=== PATIENT | female | born 1980 | race Caucasian/White ===

== ENCOUNTER 2016-11-22 00:26 | Emergency (ER) | payer OTHER ==
[2016-11-22 00:36] VITALS: BP 171/83; PULSE 72; RESP 20; TEMP 98.2
[2016-11-22] MEDS ORDERED: PENICILLIN V POTASSIUM 250 MG TAB PO STA (00:42)
[2016-11-22] MEDS ORDERED: Acetaminophen-Codeine 300-30mg TAB PO STA (00:42)
--- NOTE | 2016-11-22 00:44 | ED ---
ENT HPI - General Chief complaint: Dental/Oral Stated complaint: facial/tooth pain Time Seen by Provider: 11/22/16 00:37 Source: patient, RN notes reviewed Mode of arrival: ambulatory Limitations: no limitations - History of Present Illness Initial comments: 36-year-old female presented emergency from for left side of facial pain, swelling. Patient states she feels that she has a dental infection. She states her last night and has been worsening. She states that she thought she could wait until Wednesday to see a dentist but states that she was worried that worse. Patient any fevers or chills. Denies any difficulty swallowing, to the opening her mouth. Patient states that she does have some bad teeth that she knows about in the upper aspect. Patient has NO KNOWN DRUG ALLERGIES. - Related Data Previous Rx's Medication Instructions Recorded Acetaminophen-Codeine 300-30mg 1 tab PO Q4H PRN #20 tablet 11/22/16 [Tylenol #3] Penicillin V Potassium [Pen Vee K] 500 mg PO QID #40 tab 11/22/16 Allergies Allergy/AdvReac Type Severity Reaction Status Date / Time No Known Allergies Allergy Verified 11/22/16 00:36 Review of Systems ROS Statement: Those systems with pertinent positive or pertinent negative responses have been documented in the HPI. ROS Other: All systems not noted in ROS Statement are negative. Past Medical History Past Medical History: No Reported History History of Any Multi-Drug Resistant Organisms: None Reported Past Surgical History: Section, Cholecystectomy, Tubal Ligation Past Psychological History: No Psychological Hx Reported Smoking Status: Current every day smoker Past Alcohol Use History: Occasional Past Drug Use History: None Reported General Exam Limitations: no limitations General appearance: alert, in no apparent distress Head exam: Present: atraumatic, normocephalic, normal inspection Eye exam: Present: normal appearance, PERRL, EOMI. Absent: scleral icterus, conjunctival injection, periorbital swelling ENT exam: Present: mucous membranes moist, other (Mild swelling to the left cheek). Absent: normal oropharynx (Multiple dental fillings noted, no drainable abscess there is some tenderness along the upper left teeth) Neck exam: Present: normal inspection, full ROM. Absent: tenderness, meningismus, lymphadenopathy Respiratory exam: Present: normal lung sounds bilaterally. Absent: respiratory distress, wheezes, rales, rhonchi, stridor Cardiovascular Exam: Present: regular rate, normal rhythm, normal heart sounds. Absent: systolic murmur, diastolic murmur, rubs, gallop, clicks Course Vital Signs 11/22/16 00:34 Temperature 98.2 F Pulse Rate 72 Respiratory 20 Rate Blood Pressure 171/83 O2 Sat by Pulse 97 Oximetry Medical Decision Making - Medical Decision Making 36-year-old female presented for left-sided facial pain and swelling. Patient most likely has an early dental abscess. Patient was started on penicillin and given Tylenol with codeine for pain. Return parameters were discussed. She is advised to dentist on Wednesday. Disposition Clinical Impression: Toothache, Dental abscess Disposition: HOME SELF-CARE Condition: Stable Instructions: Dental Abscess (ED) Additional Instructions: Please return to the Emergency Department if symptoms worsen or any other concerns. Prescriptions: Acetaminophen-Codeine 300-30mg [Tylenol #3] 1 tab PO Q4H PRN #20 tablet PRN Reason: pain Penicillin V Potassium [Pen Vee K] 500 mg PO QID #40 tab Referrals: Sherine Ma MD [Primary Care Provider] - 1-2 days Time of Disposition: 00:43
== END 2016-11-22 01:05 | disposition home or self-care (01) ==
LOC: EC 00:26
DX: K04.7 Periapical abscess without sinus (principal); F17.200 Nicotine dependence, unspecified, uncomplicated; Z98.811 Dental restoration status
CPT/HCPCS: 99282

== ENCOUNTER 2017-06-16 09:24 | Emergency (ER) | payer OTHER ==
[2017-06-16] MEDS ORDERED: SODIUM CHLORIDE 0.9% 1,000 ML IV STA (09:44)
[2017-06-16] MEDS ORDERED: METOCLOPRAMIDE 5 MG/ML 2 ML VIAL IVP STA (09:44)
--- NOTE | 2017-06-16 10:39 | ED ---
Abdominal Pain HPI - General Chief Complaint: Abdominal Pain Stated Complaint: Abdominal pain Time Seen by Provider: 06/16/17 09:44 Source: patient, RN notes reviewed Mode of arrival: ambulatory Limitations: no limitations - History of Present Illness Initial Comments: This a 36-year-old female presents emergency Department chief complaint abdominal pain for last several months. Patient states his been worsening. She does complain of intermittent constipation and diarrhea. She states she's had no melena or hematochezia. Patient states that a prior cholecystomy, tubal ligation. Patient denies any known fever no chills. She states the pain is not localize states it's more diffuse and varies. Patient has no change in back pain she does have some chronic back pain issues. Denies any chest pain or shortness breath. She does admit to some acid reflux at times. Chance patient states that the patient denies any vaginal bleeding or vaginal discharge. MD Complaint: abdominal pain - Related Data Home Medications Medication Instructions Recorded Confirmed diphenhydrAMINE [Benadryl] 50 mg PO HS PRN 06/16/17 06/16/17 Previous Rx's Medication Instructions Recorded Acetaminophen-Codeine 300-30mg 1 tab PO Q4H PRN #20 tablet 11/22/16 [Tylenol #3] Allergies Allergy/AdvReac Type Severity Reaction Status Date / Time No Known Allergies Allergy Verified 06/16/17 10:29 Review of Systems ROS Statement: Those systems with pertinent positive or pertinent negative responses have been documented in the HPI. ROS Other: All systems not noted in ROS Statement are negative. Past Medical History Past Medical History: No Reported History History of Any Multi-Drug Resistant Organisms: None Reported Past Surgical History: Section, Cholecystectomy, Tubal Ligation Past Psychological History: No Psychological Hx Reported Smoking Status: Current every day smoker Past Alcohol Use History: Occasional Past Drug Use History: None Reported General Exam Limitations: no limitations General appearance: alert, in no apparent distress Head exam: Present: atraumatic, normocephalic, normal inspection Neck exam: Present: normal inspection, full ROM. Absent: tenderness, meningismus, lymphadenopathy Respiratory exam: Present: normal lung sounds bilaterally. Absent: respiratory distress, wheezes, rales, rhonchi, stridor Cardiovascular Exam: Present: regular rate, normal rhythm, normal heart sounds. Absent: systolic murmur, diastolic murmur, rubs, gallop, clicks GI/Abdominal exam: Present: soft, tenderness (Mild diffuse), normal bowel sounds. Absent: distended, guarding, rebound, rigid Back exam: Absent: CVA tenderness (R), CVA tenderness (L) Skin exam: Present: warm, dry, intact, normal color. Absent: rash Course Vital Signs 06/16/17 09:39 Temperature 98.9 F Pulse Rate 79 Respiratory 18 Rate Blood Pressure 179/89 O2 Sat by Pulse 98 Oximetry Medical Decision Making - Medical Decision Making 36 year old Female presented for abdominal pain. Patient's been having ongoing issues worsened last few days. Patient lab work, x-ray and CT were reviewed. Patient does have some evidence of enteritis or ileus. Patient states she does feel improved after medicines here. Patient will be discharged advised to follow-up with primary care physician. We discussed she may have some underlying the IBS because her ongoing intestinal issues. - Lab Data Result diagrams: 06/16/17 10:32 06/16/17 10:32 Lab Results 06/16/17 06/16/17 06/16/17 Range/Units 10:32 10:32 10:32 WBC 6.9 (3.8-10.6) k/uL RBC 4.86 (3.80-5.40) m/uL Hgb 14.0 (11.4-16.0) gm/dL Hct 41.8 (34.0-46.0) % MCV 86.1 (80.0-100.0) fL MCH 28.8 (25.0-35.0) pg MCHC 33.5 (31.0-37.0) g/dL RDW 13.7 (11.5-15.5) % Plt Count 337 (150-450) k/uL Neutrophils % 66 % Lymphocytes % 24 % Monocytes % 4 % Eosinophils % 3 % Basophils % 1 % Neutrophils # 4.6 (1.3-7.7) k/uL Lymphocytes # 1.7 (1.0-4.8) k/uL Monocytes # 0.3 (0-1.0) k/uL Eosinophils # 0.2 (0-0.7) k/uL Basophils # 0.0 (0-0.2) k/uL Sodium 142 (137-145) mmol/L Potassium 4.7 (3.5-5.1) mmol/L Chloride 106 (98-107) mmol/L Carbon Dioxide 24 (22-30) mmol/L Anion Gap 12 mmol/L BUN 8 (7-17) mg/dL Creatinine 0.66 (0.52-1.04) mg/dL Est GFR (CKD-EPI)AfAm >90 (>60 ml/min/1.73 sqM) Est GFR (CKD-EPI)NonAf >90 (>60 ml/min/1.73 sqM) Glucose 95 (74-99) mg/dL Plasma Lactic Acid Gino 1.1 (0.7-2.0) mmol/L Calcium 9.3 (8.4-10.2) mg/dL Total Bilirubin 0.3 (0.2-1.3) mg/dL AST 19 (14-36) U/L ALT 37 (9-52) U/L Alkaline Phosphatase 96 (38-126) U/L Total Protein 6.4 (6.3-8.2) g/dL Albumin 3.8 (3.5-5.0) g/dL Amylase 48 (30-110) U/L Lipase 88 (23-300) U/L Urine Color Urine Appearance (Clear) Urine pH (5.0-8.0) Ur Specific [place] (1.001-1.035) Urine Protein (Negative) Urine Glucose (UA) (Negative) Urine Ketones (Negative) Urine Blood (Negative) Urine Nitrite (Negative) Urine Bilirubin (Negative) Urine Urobilinogen (<2.0) mg/dL Ur Leukocyte Esterase (Negative) Urine RBC (0-5) /hpf Urine WBC (0-5) /hpf Ur Squamous Epith Cells (0-4) /hpf Hyaline Casts (0-2) /lpf Urine Mucus (None) /hpf 06/16/17 Range/Units 10:32 WBC (3.8-10.6) k/uL RBC (3.80-5.40) m/uL Hgb (11.4-16.0) gm/dL Hct (34.0-46.0) % MCV (80.0-100.0) fL MCH (25.0-35.0) pg MCHC (31.0-37.0) g/dL RDW (11.5-15.5) % Plt Count (150-450) k/uL Neutrophils % % Lymphocytes % % Monocytes % % Eosinophils % % Basophils % % Neutrophils # (1.3-7.7) k/uL Lymphocytes # (1.0-4.8) k/uL Monocytes # (0-1.0) k/uL Eosinophils # (0-0.7) k/uL Basophils # (0-0.2) k/uL Sodium (137-145) mmol/L Potassium (3.5-5.1) mmol/L Chloride (98-107) mmol/L Carbon Dioxide (22-30) mmol/L Anion Gap mmol/L BUN (7-17) mg/dL Creatinine (0.52-1.04) mg/dL Est GFR (CKD-EPI)AfAm (>60 ml/min/1.73 sqM) Est GFR (CKD-EPI)NonAf (>60 ml/min/1.73 sqM) Glucose (74-99) mg/dL Plasma Lactic Acid Gino (0.7-2.0) mmol/L Calcium (8.4-10.2) mg/dL Total Bilirubin (0.2-1.3) mg/dL AST (14-36) U/L ALT (9-52) U/L Alkaline Phosphatase (38-126) U/L Total Protein (6.3-8.2) g/dL Albumin (3.5-5.0) g/dL Amylase (30-110) U/L Lipase (23-300) U/L Urine Color Light Yellow Urine Appearance Cloudy H (Clear) Urine pH 6.5 (5.0-8.0) Ur Specific [place] 1.007 (1.001-1.035) Urine Protein Negative (Negative) Urine Glucose (UA) Negative (Negative) Urine Ketones Negative (Negative) Urine Blood Negative (Negative) Urine Nitrite Negative (Negative) Urine Bilirubin Negative (Negative) Urine Urobilinogen <2.0 (<2.0) mg/dL Ur Leukocyte Esterase Small H (Negative) Urine RBC 1 (0-5) /hpf Urine WBC 1 (0-5) /hpf Ur Squamous Epith Cells 4 (0-4) /hpf Hyaline Casts 1 (0-2) /lpf Urine Mucus Rare H (None) /hpf Disposition Clinical Impression: Abdominal pain, Enteritis, Ileus Disposition: HOME SELF-CARE Condition: Stable Instructions: Abdominal Pain (ED) Additional Instructions: Please return to the Emergency Department if symptoms worsen or any other concerns. Referrals: Sherine Ma MD [Primary Care Provider] - 1-2 days Time of Disposition: 13:23
[2017-06-16] MEDS ORDERED: KETOROLAC 30 MG/ML 1 ML VIAL IVP STA (10:42)
[2017-06-16 10:55] LABS: Basophils % (A) 1 %; Eosinophils # (A) 0.2 k/uL (0-0.7); Eosinophils % (A) 3 %; HCT 41.8 % (34.0-46.0); Lymphocytes # (A) 1.7 k/uL (1.0-4.8); Lymphocytes % (A) 24 %; MCH 28.8 pg (25.0-35.0); MCHC 33.5 g/dL (31.0-37.0); MCV 86.1 fL (80.0-100.0); Monocytes # (A) 0.3 k/uL (0-1.0); Monocytes % (A) 4 %; Neutrophils # (A) 4.6 k/uL (1.3-7.7); Neutrophils % (A) 66 %; Platelet Count 337 k/uL (150-450); RBC 4.86 m/uL (3.80-5.40); RDW 13.7 % (11.5-15.5); WBC 6.9 k/uL (3.8-10.6)
[2017-06-16 11:05] LABS: ALT 37 U/L (9-52); AST 19 U/L (14-36); Albumin 3.8 g/dL (3.5-5.0); Alkaline Phosphatase 96 U/L (38-126); Amylase 48 U/L (30-110); Anion Gap 12 mmol/L; Blood Urea Nitrogen 8 mg/dL (7-17); Calcium 9.3 mg/dL (8.4-10.2); Carbon Dioxide 24 mmol/L (22-30); Chloride 106 mmol/L (98-107); Glucose 95 mg/dL (74-99); Lipase 88 U/L (23-300); Potassium 4.7 mmol/L (3.5-5.1); Sodium 142 mmol/L (137-145); Total Bilirubin 0.3 mg/dL (0.2-1.3); Total Protein 6.4 g/dL (6.3-8.2)
--- NOTE | 2017-06-16 11:05 | XR ---
EXAMINATION TYPE: XR KUB DATE OF EXAM: 06/16/2017 COMPARISON: 02/17/2012 HISTORY: Abdominal pain TECHNIQUE: One view abdominal series FINDINGS: The osseous structures are intact. The bowel gas pattern is nonspecific. Lung bases are clear. Surg ical clips in the gallbladder fossa. Motion artifact limits the exam. Hypertrophic changes of the spi ne. IMPRESSION: 1. Limited exam due to motion artifact demonstrates a nonspecific abdomen.
[2017-06-16 11:06] LABS: Appearance,Urine Cloudy (Clear); Bilirubin,Urine Negative (Negative); Blood,Urine Negative (Negative); Color,Urine Light Yellow; Glucose,Urine (UA) Negative (Negative); Hyaline Casts,Urine 1 /lpf (0-2); Ketones,Urine Negative (Negative); Leukocyte Esterase,Urine Small (Negative); Mucus,Urine Rare /hpf; Nitrite,Urine Negative (Negative); PH, Urine 6.5 (5.0-8.0); Protein,Urine Negative (Negative); RBC,Urine 1 /hpf (0-5); Specific Gravity,Urine 1.007 (1.001-1.035); Squamous Epithelial Cell,Urine 4 /hpf (0-4); Urobilinogen,Urine <2.0 mg/dL (<2.0); WBC,Urine 1 /hpf (0-5)
[2017-06-16] MEDS ORDERED: RX INFO: IV CONTRAST WAS GIVEN 1 EACH MISC MISCELLANE PRN (11:40)
--- NOTE | 2017-06-16 12:27 | CT ---
EXAMINATION TYPE: CT abdomen pelvis w con DATE OF EXAM: 06/16/2017 COMPARISON: 02/17/2012 HISTORY: 36-year-old female with diarrhea, vomiting, burning sensation in abdomen TECHNIQUE: Contiguous axial scanning of the abdomen and pelvis following administration of 100 ml Omn ipaque 300 IV contrast. Delayed images through the kidneys and coronal/sagittal reconstructions perf ormed. CT DLP: 1915 mGycm Automated exposure control for dose reduction was used. FINDINGS: The heart is normal size without pericardial effusion. Lung bases clear without pleural effusion. Liver enlarged measuring 19.2 cm. There is diffuse low-attenuation suggesting fatty infiltration. Por [place] venous system is patent. No biliary ductal dilatation. Cholecystectomy clips. Adrenal glands, kidneys, and pancreas appear within normal limits. Spleen is borderline enlarged at 13.9 cm on coronal series image 74. No dilated small bowel, free fluid, or free air. Normal appendix. Mild stool burden with mild left hemicolonic diverticulosis. No pericolonic inflammatory change. No mesenteric or retroperitoneal lymphadenopathy. A cluster of small bowel loops in the left paramedi an mid to lower abdomen are fluid filled. Uterus and ovaries are visualized. No abnormal fluid collection the pelvis or pelvic lymphadenopathy. Bones: Mild degenerative spurring at the hips. No osseous destructive process. IMPRESSION: 1. A SMALL CLUSTER OF FLUID-FILLED SMALL BOWEL LOOPS IN THE LEFT PARAMEDIAN MID TO LOWER ABDOMEN COUL D REPRESENT A REGIONAL ILEUS OR ENTERITIS. 2. MILD LEFT-SIDED COLONIC DIVERTICULOSIS WITHOUT ACUTE DIVERTICULITIS. 3. 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 CORRELATE WITH LFT'S, LIPID PROFILE, AND PATIENT RI SK FACTORS. 4. BORDERLINE SPLENOMEGALY (13.9 CM).
[2017-06-16 13:43] VITALS: BP 142/87; PULSE 71; RESP 16; TEMP 98.1
== END 2017-06-16 13:48 | disposition home or self-care (01) ==
LOC: EC 09:24
DX: K52.9 Noninfective gastroenteritis and colitis, unspecified (principal); K56.7 Ileus, unspecified; F17.200 Nicotine dependence, unspecified, uncomplicated; Z90.49 Acquired absence of other specified parts of digestive tract
CPT/HCPCS: 99284; 96374; 96375; 96361; 36415; 80053; 82150; 83605; 83690; 85025; 81001; 74018; 74177; J2765; J1885; Q9967

== ENCOUNTER 2017-08-23 16:30 | Emergency (ER) | payer OTHER ==
[2017-08-23 16:42] VITALS: RESP 18
[2017-08-23] MEDS ORDERED: SODIUM CHLORIDE 0.9% 1,000 ML IV STA (17:11)
--- NOTE | 2017-08-23 17:15 | ED ---
Headache HPI - General Chief Complaint: Headache Stated Complaint: Headache/numbness rt cheek Time Seen by Provider: 08/23/17 17:01 Source: RN notes reviewed Mode of arrival: ambulatory Limitations: no limitations - History of Present Illness Initial Comments: This is a 36-year-old female who presents to the emergency department with chief complaint of headache. Patient states that her 2 weeks ago. She states that she has been coping well. She states that she was at work this afternoon and at approximately 2:45 developed a headache. She describes the headache as cold, moving and pressure-like. She states that it is an odd sensation and that it moves around on the back of her head. She states it feels "fuzzy." She states that on her drive home from work she developed some numbness to her right cheek. This has subsided. She denies any weakness or dizziness. She states that she is concerned because she has a family history of strokes. Denies fevers or chills, chest pain or shortness of breath, nausea or vomiting. Patient states that she wants a computed tomography scan of her head. Denies recent falls, injuries or trauma. Patient does report that she has had headaches in the past but has never experienced any thing like this. - Related Data Home Medications Medication Instructions Recorded Confirmed diphenhydrAMINE [Benadryl] 50 mg PO HS PRN 06/16/17 08/23/17 Albuterol Inhaler [Ventolin Hfa 2 puff INHALATION RT-Q6H PRN 08/23/17 08/23/17 Inhaler] Naproxen Sodium [Aleve] 440 mg PO HS 08/23/17 08/23/17 Allergies Allergy/AdvReac Type Severity Reaction Status Date / Time No Known Allergies Allergy Verified 08/23/17 17:13 Review of Systems ROS Statement: Those systems with pertinent positive or pertinent negative responses have been documented in the HPI. ROS Other: All systems not noted in ROS Statement are negative. Past Medical History Past Medical History: No Reported History History of Any Multi-Drug Resistant Organisms: None Reported Past Surgical History: Section, Cholecystectomy, Tubal Ligation Past Psychological History: No Psychological Hx Reported Smoking Status: Current every day smoker Past Alcohol Use History: Occasional Past Drug Use History: None Reported General Exam - General Exam Comments Initial Comments: General: Awake and alert, well-developed; in no apparent distress. HEENT: Head atraumatic, normocephalic. Pupils are equal, round and reactive to light. Extraocular movements intact. Oropharynx moist without erythema or exudate. Neck: Supple. Normal ROM. Cardiovascular: Regular rate and rhythm. No murmurs, rubs or gallops. Chest symmetrical. Respiratory: Lungs clear to auscultation bilaterally. No wheezes, rales or rhonchi. Normal respiratory effort with no use of accessory muscles. Musculoskeletal: Normal ROM, no tenderness, strength 5/5 bilateral upper and lower extremities. Ambulating normally. Skin: [place], warm and dry without rashes or lesions. Neurological: Alert and oriented x3. CN II-XII grossly intact. Speech is fluent and answers are appropriate. No focal neuro deficits. Psychiatric: Patient is tearful and anxious. Limitations: no limitations Course Vital Signs 08/23/17 16:38 Temperature 98.3 F Pulse Rate 74 Respiratory 18 Rate Blood Pressure 140/86 O2 Sat by Pulse 98 Oximetry Medical Decision Making - Medical Decision Making This is a 36-year-old female who presents to the emergency department with chief complaint of headache. Patient does report she has a history of headaches but that this feels different. She describes her headache as fuzzy, pressure-like, cold and moving around the back of her head. She reports an episode of numbness to the right cheek. Denies any injuries, falls or trauma. Patient is anxious and tearful. She states that she lost her 2 weeks ago and is requesting to have a computed tomography scan of her brain. She is nervous that she may be having a stroke as she has a significant family history On physical examination, patient has no focal neuro deficits, no weakness and speech is clear and answers are appropriate. Vital signs are stable. Computed tomography scan was obtained and revealed no acute abnormalities. CBC and CMP are unremarkable. Patient is in no acute distress and will be discharged home at this time. She is in agreement and voices understanding. All questions answered. - Lab Data Result diagrams: 08/23/17 17:20 08/23/17 17:20 Lab Results 08/23/17 08/23/17 Range/Units 17:20 17:20 WBC 8.1 (3.8-10.6) k/uL RBC 5.02 (3.80-5.40) m/uL Hgb 14.2 (11.4-16.0) gm/dL Hct 42.8 (34.0-46.0) % MCV 85.3 (80.0-100.0) fL MCH 28.4 (25.0-35.0) pg MCHC 33.3 (31.0-37.0) g/dL RDW 13.7 (11.5-15.5) % Plt Count 357 (150-450) k/uL Neutrophils % 70 % Lymphocytes % 21 % Monocytes % 5 % Eosinophils % 3 % Basophils % 1 % Neutrophils # 5.7 (1.3-7.7) k/uL Lymphocytes # 1.7 (1.0-4.8) k/uL Monocytes # 0.4 (0-1.0) k/uL Eosinophils # 0.3 (0-0.7) k/uL Basophils # 0.0 (0-0.2) k/uL Sodium 143 (137-145) mmol/L Potassium 4.9 (3.5-5.1) mmol/L Chloride 108 H (98-107) mmol/L Carbon Dioxide 20 L (22-30) mmol/L Anion Gap 15 mmol/L BUN 14 (7-17) mg/dL Creatinine 0.70 (0.52-1.04) mg/dL Est GFR (CKD-EPI)AfAm >90 (>60 ml/min/1.73 sqM) Est GFR (CKD-EPI)NonAf >90 (>60 ml/min/1.73 sqM) Glucose 105 H (74-99) mg/dL Calcium 9.8 (8.4-10.2) mg/dL Total Bilirubin 0.3 (0.2-1.3) mg/dL AST 30 (14-36) U/L ALT 37 (9-52) U/L Alkaline Phosphatase 80 (38-126) U/L Total Protein 6.8 (6.3-8.2) g/dL Albumin 4.3 (3.5-5.0) g/dL - Radiology Data Radiology results: report reviewed CT brain without contrast impression: Negative computed tomography scan of the brain. No change. Disposition Clinical Impression: Headache Disposition: HOME SELF-CARE Condition: Good Instructions: Acute Headache (ED) Additional Instructions: Please follow up with primary care provider within 1-2 days. Return to emergency department if symptoms should worsen or any concerns arise. Is patient prescribed a controlled substance at d/c from ED?: No Referrals: Sherine Ma MD [Primary Care Provider] - 1-2 days Time of Disposition: 18:34
[2017-08-23 17:29] LABS: Basophils % (A) 1 %; Eosinophils # (A) 0.3 k/uL (0-0.7); Eosinophils % (A) 3 %; HCT 42.8 % (34.0-46.0); HGB 14.2 gm/dL (11.4-16.0); Lymphocytes # (A) 1.7 k/uL (1.0-4.8); Lymphocytes % (A) 21 %; MCH 28.4 pg (25.0-35.0); MCHC 33.3 g/dL (31.0-37.0); MCV 85.3 fL (80.0-100.0); Mean Platelet Volume 6.4; Monocytes # (A) 0.4 k/uL (0-1.0); Monocytes % (A) 5 %; Neutrophils # (A) 5.7 k/uL (1.3-7.7); Neutrophils % (A) 70 %; Platelet Count 357 k/uL (150-450); RBC 5.02 m/uL (3.80-5.40); RDW 13.7 % (11.5-15.5); WBC 8.1 k/uL (3.8-10.6)
[2017-08-23 17:48] LABS: ALT 37 U/L (9-52); AST 30 U/L (14-36); Albumin 4.3 g/dL (3.5-5.0); Alkaline Phosphatase 80 U/L (38-126); Anion Gap 15 mmol/L; Blood Urea Nitrogen 14 mg/dL (7-17); Calcium 9.8 mg/dL (8.4-10.2); Carbon Dioxide 20 mmol/L (22-30); Chloride 108 mmol/L (98-107); Glucose 105 mg/dL (74-99); Potassium 4.9 mmol/L (3.5-5.1); Sodium 143 mmol/L (137-145); Total Bilirubin 0.3 mg/dL (0.2-1.3); Total Protein 6.8 g/dL (6.3-8.2)
--- NOTE | 2017-08-23 18:10 | CT ---
EXAMINATION TYPE: CT brain wo con DATE OF EXAM: 08/23/2017 COMPARISON: December 14, 2012 HISTORY: Headache CT DLP: mGycm. Automated Exposure Control for Dose Reduction was Utilized. TECHNIQUE: CT scan of the head is performed without contrast. FINDINGS: Ventricles and sulci appear normal. There is no mass effect nor midline shift. There is no sign of intracranial hemorrhage. The calvarium is intact. IMPRESSION: Negative CT scan of the brain. No change.
[2017-08-23] MEDS ORDERED: KETOROLAC 30 MG/ML 1 ML VIAL IVP STA (18:32)
[2017-08-23 19:03] VITALS: BP 115/57; PULSE 61; TEMP 97.1
== END 2017-08-23 19:02 | disposition home or self-care (01) ==
LOC: EC 16:30
DX: R51 Headache (principal); R20.0 Anesthesia of skin; F17.200 Nicotine dependence, unspecified, uncomplicated; Z79.1 Long term (current) use of non-steroidal anti-inflammatories (NSAID)
CPT/HCPCS: 99284; 96374; 96361; 36415; 80053; 85025; 70450; J1885

== ENCOUNTER 2018-01-20 10:59 | Emergency (ER) | payer OTHER ==
[2018-01-20] MEDS ORDERED: diphenhydrAMINE 50 MG CAP PO STA (11:36)
[2018-01-20] MEDS ORDERED: KETOROLAC 30 MG/ML 1 ML VIAL IVP STA (11:36)
[2018-01-20] MEDS ORDERED: METOCLOPRAMIDE 5 MG/ML 2 ML VIAL IVP STA (11:36)
[2018-01-20] MEDS ORDERED: SODIUM CHLORIDE 0.9% 1,000 ML IV STA (11:36)
--- NOTE | 2018-01-20 11:51 | ED ---
General Adult HPI - General Chief complaint: Headache Stated complaint: headache Time Seen by Provider: 01/20/18 11:14 Source: patient, RN notes reviewed Mode of arrival: ambulatory Limitations: no limitations - History of Present Illness Initial comments: Patient 37-year-old female presented to the emergency room today with chief complaint of migraine headache over the last 8 days. She does admit that it's located on left side and also radiates to the back. She states the burning sensation. She states she has had similar migraine once in the past when she was seen here in emergency room and did have a CAT scan performed. Patient states that she has had some nausea. Does admit to photosensitivity appears that she's tried Excedrin Migraine along with ibuprofen at home with little relief of the symptoms. Patient also admits that she went to urgent care yesterday because she was experiencing some left axilla pain. She states her wrist and sharp pain. She states she's had some cough congestion over the last week. Does admit to a history of asthma was using her breathing treatments at home and states that there is improvement. States still having some pain occasionally in the left axilla. He denies any shortness breath. She denies any pleuritic chest pain. Denies any recent travel or calf pain. Patient is not on any control. Patient denies any recent fever, chills, shortness of breath, chest pain, back pain, abdominal pain, nausea or vomiting, numbness or tingling, or any other complaints. - Related Data Home Medications Medication Instructions Recorded Confirmed diphenhydrAMINE [Benadryl] 50 mg PO HS PRN 06/16/17 01/20/18 Albuterol Inhaler [Ventolin Hfa 3 puff INHALATION RT-Q6H PRN 08/23/17 01/20/18 Inhaler] Albuterol Nebulized [Ventolin 2.5 mg INHALATION RT-Q6H PRN 01/20/18 01/20/18 Nebulized] Dm/Acetaminophen/Doxylamine [Vicks 30 ml PO Q6H PRN 01/20/18 01/20/18 Nyquil Cold-Flu Liquid] Phenylephrine/Dm/Acetaminop/GG 30 ml PO Q6H PRN 01/20/18 01/20/18 [Vicks Dayquil Severe Cold-Flu] Previous Rx's Medication Instructions Recorded Naproxen [Naprosyn] 500 mg PO BID #20 tablet 01/20/18 Allergies Allergy/AdvReac Type Severity Reaction Status Date / Time No Known Allergies Allergy Verified 01/20/18 11:58 Review of Systems ROS Statement: Those systems with pertinent positive or pertinent negative responses have been documented in the HPI. ROS Other: All systems not noted in ROS Statement are negative. Past Medical History Past Medical History: No Reported History Additional Past Medical History / Comment(s): migraines History of Any Multi-Drug Resistant Organisms: None Reported Past Surgical History: Section, Cholecystectomy, Tubal Ligation Past Psychological History: No Psychological Hx Reported Smoking Status: Current every day smoker Past Alcohol Use History: Occasional Past Drug Use History: None Reported General Exam - General Exam Comments Initial Comments: General: The patient is awake and alert, in no distress, and does not appear acutely ill. Eye: Pupils are equal, round and reactive to light. Extra-ocular movements are intact. No nystagmus. There is normal conjunctiva bilaterally. No signs of icterus. Ears, nose, mouth and throat: There are moist mucous membranes and no oral lesions. Neck: The neck is supple, there is no tenderness or JVD. Cardiovascular: There is a regular rate and rhythm. No murmur, rub or gallop is appreciated. Pain on palpation to the left axilla left side of the chest wall. Respiratory: Lungs are clear to auscultation, respirations are non-labored, breath sounds are equal. No wheezes, stridor, rales, or rhonchi. Musculoskeletal: Normal ROM, no tenderness. Sensation intact. Strength 5/5. Pulses equal bilaterally 2+. Neurological: A&O x 3. CN II-XII intact, There are no obvious motor or sensory deficits. Coordination appears grossly intact. Speech is normal. Skin: Skin is warm and dry and no rashes or lesions are noted. Psychiatric: Cooperative, appropriate mood & affect, normal judgment. Limitations: no limitations Course Vital Signs 01/20/18 11:04 Temperature 97.8 F Pulse Rate 80 Respiratory 18 Rate Blood Pressure 141/85 O2 Sat by Pulse 100 Oximetry Medical Decision Making - Medical Decision Making Patient reexamined at this time shows no signs of distress. Previous CT recently that she was reviewed and showed no acute findings for similar headache that she had at that time. Patient states headache has improved after medications given here in the emergency room. She states she feels comfortable being discharged home will be given a prescription for naproxen to continue. Chest x-ray was performed which was negative. EKG shows normal sinus rhythm. Remaining lab work reviewed and unremarkable. Patient will be discharged home she is advised following up with family doctor/neurologist for these headaches. Advised return if any symptoms increase or worsen. - Lab Data Result diagrams: 01/20/18 11:54 01/20/18 11:54 Lab Results 01/20/18 01/20/18 01/20/18 Range/Units 11:54 11:54 11:54 WBC 8.9 (3.8-10.6) k/uL RBC 4.94 (3.80-5.40) m/uL Hgb 14.1 (11.4-16.0) gm/dL Hct 43.2 (34.0-46.0) % MCV 87.5 (80.0-100.0) fL MCH 28.6 (25.0-35.0) pg MCHC 32.6 (31.0-37.0) g/dL RDW 14.4 (11.5-15.5) % Plt Count 280 (150-450) k/uL Neutrophils % 77 % Lymphocytes % 15 % Monocytes % 4 % Eosinophils % 3 % Basophils % 1 % Neutrophils # 6.8 (1.3-7.7) k/uL Lymphocytes # 1.4 (1.0-4.8) k/uL Monocytes # 0.4 (0-1.0) k/uL Eosinophils # 0.3 (0-0.7) k/uL Basophils # 0.0 (0-0.2) k/uL Sodium 138 (137-145) mmol/L Potassium 4.9 (3.5-5.1) mmol/L Chloride 106 (98-107) mmol/L Carbon Dioxide 27 (22-30) mmol/L Anion Gap 5 mmol/L BUN 10 (7-17) mg/dL Creatinine 0.72 (0.52-1.04) mg/dL Est GFR (CKD-EPI)AfAm >90 (>60 ml/min/1.73 sqM) Est GFR (CKD-EPI)NonAf >90 (>60 ml/min/1.73 sqM) Glucose 96 (74-99) mg/dL Calcium 9.4 (8.4-10.2) mg/dL Total Bilirubin 0.4 (0.2-1.3) mg/dL AST 19 (14-36) U/L ALT 36 (9-52) U/L Alkaline Phosphatase 98 (38-126) U/L Total Creatine Kinase 37 (30-135) U/L CK-MB (CK-2) 0.3 (0.0-2.4) ng/mL CK-MB (CK-2) Rel Index 0.8 Troponin I <0.012 (0.000-0.034) ng/mL Total Protein 6.6 (6.3-8.2) g/dL Albumin 3.9 (3.5-5.0) g/dL HCG, Quant <2.4 mIU/mL Urine Color Urine Appearance (Clear) Urine pH (5.0-8.0) Ur Specific Converse (1.001-1.035) Urine Protein (Negative) Urine Glucose (UA) (Negative) Urine Ketones (Negative) Urine Blood (Negative) Urine Nitrite (Negative) Urine Bilirubin (Negative) Urine Urobilinogen (<2.0) mg/dL Ur Leukocyte Esterase (Negative) 01/20/18 Range/Units 11:54 WBC (3.8-10.6) k/uL RBC (3.80-5.40) m/uL Hgb (11.4-16.0) gm/dL Hct (34.0-46.0) % MCV (80.0-100.0) fL MCH (25.0-35.0) pg MCHC (31.0-37.0) g/dL RDW (11.5-15.5) % Plt Count (150-450) k/uL Neutrophils % % Lymphocytes % % Monocytes % % Eosinophils % % Basophils % % Neutrophils # (1.3-7.7) k/uL Lymphocytes # (1.0-4.8) k/uL Monocytes # (0-1.0) k/uL Eosinophils # (0-0.7) k/uL Basophils # (0-0.2) k/uL Sodium (137-145) mmol/L Potassium (3.5-5.1) mmol/L Chloride (98-107) mmol/L Carbon Dioxide (22-30) mmol/L Anion Gap mmol/L BUN (7-17) mg/dL Creatinine (0.52-1.04) mg/dL Est GFR (CKD-EPI)AfAm (>60 ml/min/1.73 sqM) Est GFR (CKD-EPI)NonAf (>60 ml/min/1.73 sqM) Glucose (74-99) mg/dL Calcium (8.4-10.2) mg/dL Total Bilirubin (0.2-1.3) mg/dL AST (14-36) U/L ALT (9-52) U/L Alkaline Phosphatase (38-126) U/L Total Creatine Kinase (30-135) U/L CK-MB (CK-2) (0.0-2.4) ng/mL CK-MB (CK-2) Rel Index Troponin I (0.000-0.034) ng/mL Total Protein (6.3-8.2) g/dL Albumin (3.5-5.0) g/dL HCG, Quant mIU/mL Urine Color Yellow Urine Appearance Clear (Clear) Urine pH 5.5 (5.0-8.0) Ur Specific Converse 1.020 (1.001-1.035) Urine Protein Negative (Negative) Urine Glucose (UA) Negative (Negative) Urine Ketones Negative (Negative) Urine Blood Negative (Negative) Urine Nitrite Negative (Negative) Urine Bilirubin Negative (Negative) Urine Urobilinogen <2.0 (<2.0) mg/dL Ur Leukocyte Esterase Negative (Negative) Disposition Clinical Impression: Migraine, Cough Disposition: HOME SELF-CARE Condition: Good Instructions: Acute Headache (ED) Additional Instructions: Please use medication as discussed. Please follow-up with neurologist/family doctor in the next 2 days of symptoms have not improved. Please return to emergency room if the symptoms increase or worsen or for any other concerns. Prescriptions: Naproxen [Naprosyn] 500 mg PO BID #20 tablet Is patient prescribed a controlled substance at d/c from ED?: No Referrals: Sherine Ma MD [Primary Care Provider] - 1-2 days Time of Disposition: 13:36
[2018-01-20 12:13] LABS: Basophils % (A) 1 %; Eosinophils # (A) 0.3 k/uL (0-0.7); Eosinophils % (A) 3 %; HCT 43.2 % (34.0-46.0); HGB 14.1 gm/dL (11.4-16.0); Lymphocytes # (A) 1.4 k/uL (1.0-4.8); Lymphocytes % (A) 15 %; MCH 28.6 pg (25.0-35.0); MCHC 32.6 g/dL (31.0-37.0); MCV 87.5 fL (80.0-100.0); Mean Platelet Volume 6.9; Monocytes # (A) 0.4 k/uL (0-1.0); Monocytes % (A) 4 %; Neutrophils # (A) 6.8 k/uL (1.3-7.7); Neutrophils % (A) 77 %; Platelet Count 280 k/uL (150-450); RBC 4.94 m/uL (3.80-5.40); RDW 14.4 % (11.5-15.5); WBC 8.9 k/uL (3.8-10.6)
[2018-01-20 12:15] LABS: Appearance,Urine Clear (Clear); Bilirubin,Urine Negative (Negative); Blood,Urine Negative (Negative); Color,Urine Yellow; Glucose,Urine (UA) Negative (Negative); Ketones,Urine Negative (Negative); Leukocyte Esterase,Urine Negative (Negative); Nitrite,Urine Negative (Negative); PH, Urine 5.5 (5.0-8.0); Protein,Urine Negative (Negative); Urobilinogen,Urine <2.0 mg/dL (<2.0)
[2018-01-20 12:32] LABS: ALT 36 U/L (9-52); AST 19 U/L (14-36); Albumin 3.9 g/dL (3.5-5.0); Alkaline Phosphatase 98 U/L (38-126); Anion Gap 5 mmol/L; Blood Urea Nitrogen 10 mg/dL (7-17); Calcium 9.4 mg/dL (8.4-10.2); Carbon Dioxide 27 mmol/L (22-30); Chloride 106 mmol/L (98-107); Glucose 96 mg/dL (74-99); Potassium 4.9 mmol/L (3.5-5.1); Sodium 138 mmol/L (137-145); Total Bilirubin 0.4 mg/dL (0.2-1.3); Total Protein 6.6 g/dL (6.3-8.2)
[2018-01-20 12:36] LABS: Creatine Kinase 37 U/L (30-135)
[2018-01-20 12:48] LABS: HCG,Quantitative Serum <2.4 mIU/mL
[2018-01-20 12:49] LABS: Creatine Kinase MB 0.3 ng/mL (0.0-2.4); Troponin I <0.012 ng/mL (0.000-0.034)
--- NOTE | 2018-01-20 13:12 | XR ---
EXAMINATION TYPE: XR chest 2V DATE OF EXAM: 01/20/2018 COMPARISON: NONE TECHNIQUE: PA and lateral views submitted. HISTORY: Cough and congestion FINDINGS: The lungs are clear and there is no pneumothorax, pleural effusion, or focal pneumonia. Hypertrophic and degenerative change of the spine. Prominence of the anterior margin the right first rib noted. IMPRESSION: 1. No acute process.
[2018-01-20 14:19] VITALS: BP 122/72; PULSE 68; RESP 16; TEMP 98.4
== END 2018-01-20 14:23 | disposition home or self-care (01) ==
LOC: EC 10:59
DX: G43.909 Migraine, unspecified, not intractable, without status migrainosus (principal); R05 Cough; J45.909 Unspecified asthma, uncomplicated; F17.200 Nicotine dependence, unspecified, uncomplicated; Z90.49 Acquired absence of other specified parts of digestive tract; Z98.51 Tubal ligation status
CPT/HCPCS: 36415; 71046; 80053; 81003; 82550; 82553; 84484; 84702; 85025; 93005; 96361; 96374; 96375; 99284

== ENCOUNTER → 2018-02-14 | Outpatient (CLI) | payer OTHER ==
--- NOTE | 2018-02-14 14:58 | MR ---
EXAMINATION TYPE: MR brain wo/w con DATE OF EXAM: 02/14/2018 COMPARISON: CT brain 08/23/2017 HISTORY: Trigeminal Neuralgia, Ocampo CONTRAST: Performed utilizing 15 mL intravenous Gadavist gadolinium contrast. TECHNIQUE: Multiplanar, multiecho imaging on a 3.0 Robyn magnet is performed through the brain. Stud y is performed within 24 hours of arrival to the hospital. The craniovertebral junction is normal. The pituitary is normal. Diffusion-weighted imaging is performed. No abnormal hyperintensity is present to suggest an acute i ntracranial infarct or acute ischemic change. Some mild fluid surrounds the optic nerves bilaterally. Correlate for papilledema. Punctate subcortic al white matter changes in the right limbic region. This is nonspecific and not out of proportion to the patient age. Ventricles and sulci are appropriate for the patient age. No temporal horn dilatation or hydrocephalu s is evident. No abnormal enhancement is evident following contrast administration. IMPRESSIONS: 1. No suspicious abnormality to account for trigeminal neuralgia. 2. There is some fluid surrounding the optic nerves which can be physiologic or may be slightly incre ased. Correlate for papilledema.
== END | disposition home or self-care (01) ==
LOC: RADMRIMAIN 07:50
PROVIDERS: ATTEND Family Medicine
DX: G50.0 Trigeminal neuralgia (principal)
CPT/HCPCS: 70553; A9585

== ENCOUNTER → 2020-05-07 | Outpatient (CLI) | payer OTHER ==
[2020-05-07 08:57] LABS: ALT 21 U/L (4-34); AST 19 U/L (14-36); African American GFR (CKD) >90 (>60 ml/min/1.73 sqM); Albumin 4.3 g/dL (3.5-5.0); Alkaline Phosphatase 76 U/L (38-126); Anion Gap 10 mmol/L; Blood Urea Nitrogen 16 mg/dL (7-17); Calcium 9.7 mg/dL (8.4-10.2); Carbon Dioxide 21 mmol/L (22-30); Chloride 105 mmol/L (98-107); Glucose 113 mg/dL (74-99); Non-African American GFR(CKD) >90 (>60 ml/min/1.73 sqM); Potassium 4.8 mmol/L (3.5-5.1); Sodium 136 mmol/L (137-145); Total Bilirubin 0.4 mg/dL (0.2-1.3)
[2020-05-07 09:01] LABS: INR 0.9 (<1.2); Prothrombin Time 9.5 sec (9.0-12.0)
[2020-05-07 09:03] LABS: HCT 47.3 % (34.0-46.0); HGB 15.4 gm/dL (11.4-16.0); MCH 29.1 pg (25.0-35.0); MCHC 32.6 g/dL (31.0-37.0); MCV 89.4 fL (80.0-100.0); Mean Platelet Volume 6.9; Platelet Count 398 k/uL (150-450); RDW 14.1 % (11.5-15.5); WBC 8.1 k/uL (3.8-10.6)
[2020-05-07 09:26] LABS: Appearance,Urine Cloudy (Clear); Bilirubin,Urine Negative (Negative); Blood,Urine Negative (Negative); Color,Urine Yellow; Glucose,Urine (UA) Negative (Negative); Ketones,Urine Negative (Negative); Leukocyte Esterase,Urine Small (Negative); Mucus,Urine Occasional /hpf; Nitrite,Urine Negative (Negative); Protein,Urine Trace (Negative); RBC,Urine 1 /hpf (0-5); Specific Gravity,Urine 1.027 (1.001-1.035); Squamous Epithelial Cell,Urine 23 /hpf (0-4); Urobilinogen,Urine <2.0 mg/dL (<2.0); WBC,Urine 2 /hpf (0-5)
== END | disposition home or self-care (01) ==
LOC: LABPAT 08:09
PROVIDERS: ATTEND Orthopaedic Surgery
DX: Z01.818 Encounter for other preprocedural examination (principal); Z01.812 Encounter for preprocedural laboratory examination
CPT/HCPCS: 36415; 80053; 81001; 85027; 85610; 85730; 87070; 93005

== ENCOUNTER 2020-05-14 07:18 | Observation (INO) | payer OTHER ==
[2020-05-08 18:20] VITALS: BMI 48.2
[~2020-05-14 07:18] MED LIST: ACETAMINOPHEN TAB 500 MG TAB PO PRN; GABAPENTIN 300 MG CAP PO PRN; GLYCOPYRROLATE 0.2 MG/ML 2 ML VIAL ONE; HYDROmorphone (PF) 1 MG/ML ONE; LIDOCAINE 1% (10MG/ML) FOR IV START INTRADERMA PRN; LIDOCAINE 1% INJ 10MG/ML (20 ML MDV) ONE; MIDAZOLAM 2 MG/2 ML VIAL IV PRN; MIDAZOLAM 2 MG/2 ML VIAL ONE; NEOSTIGMINE 1 MG/ML 10 ML VIAL ONE; PROPOFOL 10 MG/ML 20 ML VIAL IV ONE; Pre Op ABX Message 1 EACH MISC MISCELLANE ONE; ROCURONIUM 10 MG/ML (5 ML VIAL) IV ONE; SODIUM CHLORIDE 0.9% 100 ML BAG ONE; SUCCINYLCHOLINE CHLORIDE 100 MG/5 ML SYR IV ONE; TRANEXAMIC ACID 1,000 MG in SODIUM CHLORIDE 0.9% 100 ML IVPB PRN; TRANEXAMIC ACID 1,000 MG/10 ML VIAL ONE; ceFAZolin 3 GM in SODIUM CHLORIDE 0.9% 100 ML IVPB PRN; fentaNYL (PF) 50 MCG/ML 2 ML AMP IVP PRN; fentaNYL (PF) 50 MCG/ML 2 ML AMP ONE
[2020-05-14] MEDS: LACTATED RINGERS 1,000 ML IV SCH ×3 (08:21→18:15)
[2020-05-14] MEDS: DEXAMETHASONE SOD PHOSPHATE 4 MG/ML 1 ML VIAL IV ONE ×2 (08:34→13:46)
[2020-05-14] MEDS ORDERED: MELOXICAM 7.5 MG TAB PO ONE (08:35)
[2020-05-14] MEDS: ONDANSETRON 4 MG/2 ML VIAL IVP ONE ×2 (08:35→13:46)
[2020-05-14] MEDS ORDERED: HYDROmorphone 0.2 MG/1 ML SYRINGE IVP PRN (08:50)
[2020-05-14] MEDS ORDERED: ONDANSETRON 4 MG/2 ML VIAL IVP PRN (08:50)
[2020-05-14] MEDS ORDERED: bisacodyL 10 MG SUPP RECTAL PRN (08:50)
[2020-05-14] MEDS ORDERED: MAGNESIUM HYDROXIDE 2,400 MG/10 ML CUP PO PRN (08:50)
[2020-05-14] MEDS ORDERED: NALOXONE 0.4 MG/ML 1 ML VIAL IV PRN (08:50)
[2020-05-14] MEDS ORDERED: hydrOXYzine pamoate 25 MG CAP PO PRN (08:50)
[2020-05-14] MEDS ORDERED: NA PHOS,M-B/NA PHOS,DI-BA 133 ML ENEMA RECTAL PRN (08:50)
[2020-05-14] MEDS ORDERED: HYDROcodone/APAP 7.5-325MG 1 EACH TAB PO PRN (08:52)
[2020-05-14] MEDS ORDERED: SCOPOLAMINE 1.5MG/72HR PATCH TRANSDERM ONE (08:55)
[2020-05-14] MEDS: ROPIVACAINE 246.25 MG, EPINEPHrine 0.5 MG, cloNIDine HCL/PF 80 MCG, WATER FOR INJECTION... MISCELLANE PRN ×8 (09:28→10:20)
[2020-05-14] MEDS ORDERED: ceFAZolin 3,000 MG in SODIUM CHLORIDE 0.9% IRRIGATIO 3,000 ML IRRIGATION ONE (09:29)
--- NOTE | 2020-05-14 10:20 | P.OP ---
Date of Procedure: 05/14/20 Preoperative Diagnosis: Severe osteoarthritis right knee Postoperative Diagnosis: Severe osteoarthritis right knee Procedure(s) Performed: Right total knee arthroplasty Implants: [employer] Journey II CR Oxinium cruciate retaining femoral component size 6, right [employer] Journey nonporous tibial baseplate size 4, right [employer] Journey II, XLPE Deep Dished articular insert, size 12 mm, Size 3-4, right [employer] Journey Karla II resurfacing patellar component, oval, 329 mm All components were cemented using Palacos R bone cement The articulation is Oxinium on polyethylene Anesthesia: OBEY Surgeon: Rosas Barrera Oil Tanker Captain #1: Madonna Grier Estimated Blood Loss (ml): 30 Pathology: other (Bone and cartilage) Condition: stable Disposition: PACU Indications for Procedure: After failure of conservative treatment we discussed the surgical and nonsurgical treatment options at length. Patient wishes to proceed with a total knee arthroplasty. Complications specific to this procedure were discussed at length, including but not limited to infection, bleeding, stiffness, and nerve injury. Covid-19 was also discussed at length with the patient, and they are aware of the current policies and procedures. The patient was given the option of delaying surgery, but they elect to proceed knowing these risks. Patient is aware of all these complications and informed consent was obtained Operative Findings: The operative findings are consistent with severe osteoarthritis of the right knee Description of Procedure: Patient was seen in the preoperative area and the consent was reviewed and the operative site was marked with a skin marker. The patient verified the procedure and the operative site. An adductor canal pain catheter was placed by anesthesia in the preoperative area. The patient was then brought to the operating room and given preoperative antibiotics intravenously. A gram of transexamic acid was given intravenously. A general anesthetic was administered by the anesthesia department. A tourniquet was placed on the upper thigh and the lower extremity was prepped with chlorhexidine and draped in usual sterile fashion. A universal timeout was then performed which confirmed the patient's name, surgical site, ALLERGIES, and consent. The lower extremity was then exsanguinated and tourniquet was inflated to 250 mmHg. A standard anterior midline approach to the knee was performed. The skin and subcutaneous tissue were sharply dissected down to the patellar tendon. A medial parapatellar arthrotomy was then performed. The knee was then extended, the patellar was everted, and the knee was again flexed. The infra-patellar fat pad was removed in order to enhance exposure. The anterior horns of both menisci were excised, and a release was performed to the posterior medial aspect of the knee. On gross visual inspection, there was complete loss of articular cartilage in the medial and patellofemoral joint spaces. There was also significant cartilage damage in the lateral compartment. There were multiple periarticular osteophytes globally about the knee which were then removed with a Ronguer. The femoral canal was then opened with the 9.5 mm intramedullary drill. The 8 mm intramedullary taryn was then inserted into the femoral canal with the distal femoral cutting guide set for 5 of valgus. The distal femoral cutting block was then pinned in place. The intramedullary taryn was then removed, and the distal femur was then cut. The cutting block was then removed and the cut was checked for symmetry. The resected bone was then measured to confirm the appropriate distal femoral resection. Next, the sizing guide was then placed and set for 3 external rotation based off of the epicondylar axis and Whitesides line. Pins were then placed and the drill holes, and the femur was sized with the sizing stylus. The pins were then removed, and the sizing guide was then removed. The spikes of the femoral block was then placed into the predrilled holes, and malleted into place. Two 45 mm pins were then placed into the fixation holes on the cutting block. An robbi wing was then used to ensure there would be no notching with the anterior cut. The anterior condyles were cut without notching. The anterior chord cut was then performed, followed by the posterior cut, posterior chamfer cut, and the anterior chamfer cut. The collateral ligaments were protected during the entire process. The cutting block was then removed. Any remaining bone and osteophytes were removed from the femur with a Rominger. The femoral canal was plugged with autologous bone. Attention was then directed to the tibia. The remaining ACL was removed with a Ronguer, and the tibia was then gently subluxed forward with a large bent knee retractor. Any remaining menisci were excised. The posterior lateral corner was cauterized in order to coagulate the lateral geniculate artery. The extra medullary tibial cutting guide was then placed, set for the appropriate rotation, slope, and depth of resection. The proximal tibia cutting guide was then pinned in place. Proximal tibia was then cut and sized. The femoral trial was placed. A narrow saw blade was then used to remove the anterior intracondylar femoral bone. The CR notch trial was then placed. The tibial trial was placed with the appropriate-sized insert. The knee was able to fully extend and flex to 130 and was stable throughout all range of motion. The knee was then extended and the patella was everted. Patella was then measured, and then using an osteotomy guide, the patella was cut at the appropriate level. The patella was then measured and drilled and the patella trial was then placed. The knee was then taken through range of motion with the patella trial and the patella tracked normally using the no thumbs technique.. The knee was then extended patella trial was then removed and the patella was everted. Knee was then flexed and lug holes were drilled through the femoral trial and the femoral trial was then removed. The tibial was then re-exposed, and the tibial broach guide was then pinned in place after it was set for the appropriate rotation to allow for the most coverage without overhang. The tibia was then reamed and broached. The cut surfaces of bone were then irrigated with pulsatile lavage. The posterior structures were injected with the ropivacaine solution. The knee was also irrigated with Irrisept solution. The components were then opened, the cement was mixed, and the components were then cemented in place. The cement was allowed to harden with the knee in full extension. While the cement was hardening, the remaining soft tissues were then injected with a ropivacaine solution, which consisted of 246.25 mg of ropivacaine, 0.5 mg of epinephrine, 30 mg of Toradol, 80 g of clonidine, and 48.45 mL of sterile water, for a total of 100 mL of fluid injected. After the cemented hardened. The tourniquet was released, and hemostasis was obtained. A second gram of transexamic acid was given intravenously. The knee was again irrigated. The knee was again taken t hrough range of motion and found to be stable throughout all range of motion of 0-130, and the patella tracked normally. The fascia was then closed with 0 Vicryl followed by #2 strata fix suture. The subcutaneous tissue was closed with 3-0 Vicryl and 3-0 strata fix. Exofin glue was used for the skin and placed with the knee in flexion. After the glue had dried, and Optafoam silver impregnated dressing was applied. The patient was then transferred to recovery room in stable condition. The phlebotomist lab assistant ELFEGO Adam was required due the complexity surgery and the need for a skilled certified surgical tech/first assistant. She assisted in positioning, draping, retraction, and closure of the wound.
--- NOTE | 2020-05-14 10:30 | P.ANPRN ---
Procedure Note - Anesthesia - Nerve Block Performed Right Adductor Canal Infusion Time Out Performed: Yes ([id number]) Date of Procedure: 05/14/20 Procedure Start Time: 08:39 Procedure Stop Time: 08:46 Location of Patient: PreOp Indication: Acute Post-Operative Pain, Requested by Surgeon Specifically requested for management of pain by DrJuanis: Rosas Barrrea Sedation Type: Sedate with meaningful contact maintained Preparation: Sterile Prep Position: Supine Catheter Depth at Skin (cm): 9 Catheter: Indwelling Needle Types: Pajunk Needle Gauge: 21 Ultrasound used to visualize needle placement: Yes Ultrasound used to observe medication spread: Yes Injectate: 0.5% Ropivacaine (see comment for volume) Blood Aspirated: No Pain Paresthesia on Injection Noted: No Resistance on Injection: Normal Image Stored and Saved: Yes Events: Uneventful and Well Tolerated
[2020-05-14] MEDS ORDERED: LACTATED RINGERS 1,000 ML IV ONE (10:32)
[2020-05-14] MEDS ORDERED: ROPIVACAINE 0.2%-NS ON-Q PUMP 1,090 MG, EMPTY PAIN BALL 1 EACH MISCELLANE PRN (10:37)
[2020-05-14] MEDS: HYDROmorphone 0.5 MG/0.5 ML SYRINGE IVP PRN ×2 (10:57→11:02)
[2020-05-14] MEDS: MIDAZOLAM 2 MG/2 ML VIAL IV ONE ×2 (11:09→11:30)
[2020-05-14] MEDS: MEPERIDINE 50 MG/ML SYRINGE IVP ONE ×2 (11:40→12:03)
[2020-05-14] MEDS: HYDROcodone/APAP 7.5-325MG 1 EACH TAB PO PRN ×2 (12:58→22:07)
[2020-05-14] MEDS: diazePAM 5 MG TAB PO PRN ×2 (12:58→19:58)
[2020-05-14] MEDS: ASPIRIN 325 MG TAB PO SCH ×2 (13:52→19:34)
--- NOTE | 2020-05-14 14:05 | P.CONS ---
History of Present Illness - History of Present Illness This is a pleasant 39 years old female with past medical history of asthma and osteoarthritis. History of tubal ligation and uterine ablation.she was admitted for severe osteoarthritis of the right knee undergoing elective right total knee arthroplasty today is postoperative day #0. Consult has been requested for routine medical management. Patient states that she has been biking a lot last year more than 200 miles and she has injury and her right knee prior To that which puts burden on her knee and she develops 3 spurs that was difficult to control with medical management Patient denies specific complaints, no chest pain or dyspnea. No abdominal pain, no diarrhea. No dysuria. No fever vitals looks stable. Heart rate is 59-61, blood pressure 155/72. She is saturating 96% on room air. Labs checked from last month 05/07/2020 showing unremarkable CBC and basic metabolic panel except for mild low sodium of 136, liver enzymes were not elevated. HCG was less than 2.4. Review of Systems Review of systems CONSTITUTIONAL: No fever, no malaise, no fatigue. HEENT: No recent visual problems or hearing problems. Denied any sore throat. CARDIOVASCULAR: No orthopnea, PND, no palpitations, no syncope. PULMONARY: No shortness of breath, no cough, no hemoptysis. GASTROINTESTINAL: No diarrhea, no nausea, no vomiting, no abdominal pain. Normoactive bowel sounds. NEUROLOGICAL: No headaches, no weakness, no numbness. HEMATOLOGICAL: Denies any bleeding or petechiae. GENITOURINARY: Denies any burning micturition, frequency, or urgency. MUSCULOSKELETAL/RHEUMATOLOGICAL: Denies any joint pain, swelling, or any muscle pain. Except was mentioned above ENDOCRINE: Denies any polyuria or polydipsia. Past Medical History Past Medical History: Asthma, Osteoarthritis (OA) Additional Past Medical History / Comment(s): idiopathic intracranial hypertension(pseudotumor cerebri)-causes headaches History of Any Multi-Drug Resistant Organisms: None Reported Past Surgical History: Section, Cholecystectomy, Tubal Ligation, Uterine Ablation Past Anesthesia/Blood Transfusion Reactions: No Reported Reaction Past Psychological History: No Psychological Hx Reported Smoking Status: Current some day smoker Past Alcohol Use History: Occasional Additional Past Alcohol Use History / Comment(s): occasional smoker only Past Drug Use History: None Reported - Past Family History Mother Family Medical History: Cancer, CVA/TIA Additional Family Medical History / Comment(s): ovarian cancer Medications and Allergies Home Medications Medication Instructions Recorded Confirmed Type Albuterol Inhaler (Mhu) [Ventolin 2 puff INHALATION RT-Q6H PRN 08/23/17 05/14/20 History Hfa Inhaler] Albuterol Nebulized [Ventolin 2.5 mg INHALATION RT-Q6H PRN 01/20/18 05/14/20 History Nebulized] Naproxen Sodium [Aleve] 220 mg PO BID 05/08/20 05/14/20 History Allergies Allergy/AdvReac Type Severity Reaction Status Date / Time Iodinated Contrast Media Allergy Rash/Hives Verified 05/14/20 08:09 ketorolac [From Toradol] Allergy Rash/Hives Verified 05/14/20 08:09 Physical Exam Vitals: Vital Signs Temp Pulse Resp BP Pulse Ox 05/14/20 12:30 59 L 18 155/72 96 05/14/20 12:15 61 18 157/72 97 05/14/20 12:00 54 L 18 155/61 100 05/14/20 11:45 72 18 157/62 100 05/14/20 11:30 62 18 169/81 100 05/14/20 11:15 68 18 167/82 100 05/14/20 11:00 75 18 159/67 100 05/14/20 10:47 97.7 F 90 18 172/79 100 05/14/20 08:45 80 18 137/82 99 05/14/20 08:20 97.6 F 64 18 133/83 97 Intake and Output 05/13/20 05/14/20 05/14/20 22:59 06:59 14:59 Intake Total 1801 Output Total 30 Balance 1771 Intake: IV 1801 Output: Estimated Blood Loss 30 Other: Weight 138.1 kg GENERAL: The patient is alert and oriented x3, not in any acute distress. Well developed, well nourished. HEENT: Pupils are round and equally reacting to light. EOMI. No scleral icterus. No conjunctival pallor. Normocephalic, atraumatic. No pharyngeal erythema. No thyromegaly. CARDIOVASCULAR: S1 and S2 present. No murmurs, rubs, or gallops. PULMONARY: Chest is clear to auscultation, no wheezing or crackles. ABDOMEN: Soft, nontender, nondistended, normoactive bowel sounds. No palpable organomegaly. MUSCULOSKELETAL: No joint swelling or deformity. -EXTREMITIES: No cyanosis, clubbing, or pedal edema. Right knee is in dressing, rest of the examination is deferred to the surgical primary team NEUROLOGICAL: Gross neurological examination did not reveal any focal deficits. SKIN: No rashes. no petechiae. Assessment and Plan Assessment: Severe osteoarthritis of the right knee status post right total knee replacement History of asthma, not an active issue Morbid obesity with BMI of 50.7 Plan: This is a pleasant 39 years old female who presents for elective right total knee arthroplasty. Continue with postop care. Pain management. Continue with pain medication and DVT prophylaxis as per surgery primary team Labs and medication were reviewed.. Continue same treatment. Continue with symptomatic treatment. Resume home medication. Monitor lytes and vitals. DVT and GI prophylaxis. Further recommendations depends on the clinical course of the patient
[2020-05-14] MEDS: HYDROmorphone 1 MG/ML 1 ML SYRINGE IVP PRN ×4 (14:09→23:56)
--- NOTE | 2020-05-14 14:13 | XR ---
Right knee HISTORY: Postop 2 views the right knee Patient is status post right knee arthroplasty. There is anatomic alignment. Lucency is present withi n the soft tissues. IMPRESSION: Orthopedic follow-up.
[2020-05-14] MEDS: ceFAZolin 3 GM in SODIUM CHLORIDE 0.9% 100 ML IVPB SCH ×2 (16:55→23:57)
[2020-05-14] MEDS: SODIUM CHLORIDE 0.9% 1,000 ML IV SCH ×2 (19:30→22:59)
[2020-05-14] MEDS: SENNOSIDES-DOCUSATE SODIUM 1 EACH TAB PO SCH (19:33)
[2020-05-15] MEDS: HYDROmorphone 1 MG/ML 1 ML SYRINGE IVP PRN ×7 (03:33→23:35)
[2020-05-15] MEDS: HYDROcodone/APAP 7.5-325MG 1 EACH TAB PO PRN ×4 (05:19→20:26)
[2020-05-15] MEDS: diazePAM 5 MG TAB PO PRN (05:22)
[2020-05-15] MEDS: ASPIRIN 325 MG TAB PO SCH ×2 (06:52→20:26)
[2020-05-15] MEDS ORDERED: HYDROcodone/APAP 10-325MG 1 EACH TAB PO PRN (07:06)
--- NOTE | 2020-05-15 07:09 | P.PN ---
Progress Note - Text Progress Note Date: 05/15/20 Postoperative day # 1 status post total knee arthroplasty, and adductor canal catheter placed for postoperative analgesia, currently at ropivacaine 0.2% 8 mL per hour and continuous infusion, patient complaining of severe knee pain, patient using oral pain medication for breakthrough pain. [place] 7.5/325 every 6 hours The pain is not controlled with the perineural pain pump and with the breakthrough pain medication Assessment and plan= Acute postoperative pain, adductor canal catheter for pain control, pain is not controlled, I recommend to increase the [place] to 10/325 every 6 hours when necessary, I'll increase the infusion pump to 10 mL per hour.
[2020-05-15] MEDS ORDERED: HYDROcodone/APAP 7.5-325MG 1 EACH TAB PO PRN (08:04)
--- NOTE | 2020-05-15 08:07 | P.PN ---
Subjective Progress Note Date: 05/15/20 This is a 39-year-old female who is status post right total knee arthroplasty. This is postoperative day #1 and patient is seen and evaluated at bedside with Dr. Rosas Barrera. Patient states that she is still very painful and because of this she has not been able to bear full weight on the right leg. Patient states that she has been using her walker to get to the bathroom and back. Patient denies any fever/chills, numbness, weakness, tingling, abdominal pain, shortness of breath or chest pain. Objective - Vital Signs Vital signs: Vital Signs Temp 98.3 F 05/15/20 02:00 Pulse 53 L 05/15/20 02:00 Resp 20 05/15/20 02:00 BP 158/70 05/15/20 02:00 Pulse Ox 99 05/15/20 02:00 Intake & Output 05/14/20 05/15/20 05/15/20 18:59 06:59 18:59 Intake Total 1901 1500 Output Total 30 Balance 1871 1500 Weight 138.1 kg Intake: IV 1801 Intake, IV Titration 100 Amount ceFAZolin 3 gm In Sodium 100 Chloride 0.9% 100 ml @ 200 mls/hr IVPB Q8H [facility] Rx#:[id number] Oral 1500 Output: Estimated Blood Loss 30 Other: Voiding Method Toilet # Voids 7 - Exam Vital signs are stable. Patient is in no acute distress and is alert and oriented 3. Calf is soft and nontender to palpation. Dressing is clean, dry, and intact. Patient has full foot and ankle motion without pain or difficulty. Neurovascular status and circulatory status are intact. Assessment and Plan (1) Osteoarthritis of right knee Current Visit: Yes Status: Acute Code(s): M17.11 - UNILATERAL PRIMARY OSTEOARTHRITIS, RIGHT KNEE SNOMED Code(s): 030369850911466 (2) S/P total knee arthroplasty Current Visit: Yes Status: Acute Code(s): Z96.659 - PRESENCE OF UNSPECIFIED ARTIFICIAL KNEE JOINT SNOMED Code(s): 2535577096401 Plan: #1 Continue with routine postoperative care and pain control, leave dressing in place for ten days. #2 Anticoagulation with aspirin. #3 Physical therapy and CPM today. #4 Appreciate input from medicine. #5 Anticipate discharge home with home care likely tomorrow.
[2020-05-15] MEDS: MELOXICAM 7.5 MG TAB PO SCH (08:12)
[2020-05-15] MEDS: GABAPENTIN 300 MG CAP PO SCH ×2 (08:12→20:26)
[2020-05-15 10:33] LABS: Basophils # (A) 0.04 X 10*3/uL (0.00-0.10); Basophils % (A) 0.4 %; Eosinophils # (A) 0.07 X 10*3/uL (0.04-0.35); Eosinophils % (A) 0.7 %; HCT 39.4 % (37.2-46.3); HGB 12.8 g/dL (12.0-15.0); Lymphocytes # (A) 1.65 X 10*3/uL (0.90-5.00); Lymphocytes % (A) 16.7 %; MCH 29.5 pg (27.0-32.0); MCHC 32.5 g/dL (32.0-37.0); MCV 90.8 fL (80.0-97.0); Mean Platelet Volume 9.7 fL (9.5-12.2); Monocytes # (A) 0.93 X 10*3/uL (0.20-1.00); Monocytes % (A) 9.4 %; Neutrophils # (A) 7.16 X 10*3/uL (1.80-7.70); Neutrophils % (A) 72.3 %; Platelet Count 277 X 10*3/uL (140-440); RBC 4.34 X 10*6/uL (4.10-5.20); RDW 13.6 % (11.5-14.5)
--- NOTE | 2020-05-15 12:01 | P.PN ---
Subjective This is a pleasant 39 years old female with past medical history of asthma and osteoarthritis. History of tubal ligation and uterine ablation.she was admitted for severe osteoarthritis of the right knee undergoing elective right total knee arthroplasty today is postoperative day #0. Consult has been requested for routine medical management. Patient states that she has been biking a lot last year more than 200 miles and she has injury and her right knee prior To that which puts burden on her knee and she develops 3 spurs that was difficult to control with medical management Patient denies specific complaints, no chest pain or dyspnea. No abdominal pain, no diarrhea. No dysuria. No fever vitals looks stable. Heart rate is 59-61, blood pressure 155/72. She is saturating 96% on room air. Labs checked from last month 05/07/2020 showing unremarkable CBC and basic metabolic panel except for mild low sodium of 136, liver enzymes were not elevated. HCG was less than 2.4. 05/15/2020 Patient identified from pain at the surgical site. Her right knee however she feels better today this morning. He denies chest pain or dyspnea or abdominal pain. No nausea vomiting. No fever. She did not have bowel movement but she is passing gases. Hemodynamically she is a stable. CBC is unremarkable. On basic metabolic panel is pending Patient is complaining from constipation, she is already on laxatives Objective - Vital Signs Vital signs: Vital Signs Temp 98.8 F 05/15/20 08:00 Pulse 72 05/15/20 08:00 Resp 19 05/15/20 08:00 BP 143/84 05/15/20 08:00 Pulse Ox 98 05/15/20 08:00 Intake & Output 05/14/20 05/15/20 05/15/20 18:59 06:59 18:59 Intake Total 1901 1500 Output Total 30 Balance 1871 1500 Weight 138.1 kg Intake: IV 1801 Intake, IV Titration 100 Amount ceFAZolin 3 gm In Sodium 100 Chloride 0.9% 100 ml @ 200 mls/hr IVPB Q8H [facility] Rx#:[id number] Oral 1500 Output: Estimated Blood Loss 30 Other: Voiding Method Toilet Toilet # Voids 7 - Exam GENERAL: The patient is alert and oriented x3, not in any acute distress. Well developed, well nourished. HEENT: Pupils are round and equally reacting to light. EOMI. No scleral icterus. No conjunctival pallor. Normocephalic, atraumatic. No pharyngeal erythema. No thyromegaly. CARDIOVASCULAR: S1 and S2 present. No murmurs, rubs, or gallops. PULMONARY: Chest is clear to auscultation, no wheezing or crackles. ABDOMEN: Soft, nontender, nondistended, normoactive bowel sounds. No palpable organomegaly. MUSCULOSKELETAL: No joint swelling or deformity. -EXTREMITIES: No cyanosis, clubbing, or pedal edema. Right knee is in dressing, rest of the examination is deferred to the surgical primary team NEUROLOGICAL: Gross neurological examination did not reveal any focal deficits. SKIN: No rashes. no petechiae. - Labs CBC & Chem 7: 05/15/20 07:58 Labs: Abnormal Lab Results - Last 24 Hours (Table) 05/15/20 Range/Units 07:58 Immature Gran # 0.05 H (0.00-0.04) X 10*3/uL Assessment and Plan Assessment: Severe osteoarthritis of the right knee status post right total knee replacement History of asthma, not an active issue Morbid obesity with BMI of 50.7 Plan: This is a pleasant 39 years old female who presents for elective right total knee arthroplasty. Continue with postop care. Pain management. Continue with pain medication and DVT prophylaxis as per surgery primary team Labs and medication were reviewed.. Continue same treatment. Continue with symptomatic treatment. Resume home medication. Monitor lytes and vitals. DVT and GI prophylaxis. Further recommendations depends on the clinical course of the patient
[2020-05-15] MEDS: SODIUM CHLORIDE 0.9% 1,000 ML IV SCH (15:04)
[2020-05-15] MEDS: LACTATED RINGERS 1,000 ML IV SCH (15:04)
[2020-05-15] MEDS: SENNOSIDES-DOCUSATE SODIUM 1 EACH TAB PO SCH (20:25)
[2020-05-16] MEDS: SODIUM CHLORIDE 0.9% 1,000 ML IV SCH (00:22)
[2020-05-16] MEDS: HYDROcodone/APAP 7.5-325MG 1 EACH TAB PO PRN ×2 (02:19→07:55)
[2020-05-16] MEDS: HYDROmorphone 1 MG/ML 1 ML SYRINGE IVP PRN ×2 (02:19→05:48)
[2020-05-16] MEDS: GABAPENTIN 300 MG CAP PO SCH (07:54)
[2020-05-16] MEDS: MELOXICAM 7.5 MG TAB PO SCH (07:54)
[2020-05-16] MEDS: ASPIRIN 325 MG TAB PO SCH (07:54)
[2020-05-16 09:16] VITALS: BP 116/70; PULSE 70; RESP 16; TEMP 98.4
--- NOTE | 2020-05-16 09:56 | P.DS ---
Providers Date of admission: 05/15/20 08:18 Expected date of discharge: 05/16/20 Attending physician: Rosas Barrera Consults: 05/14/20 08:50 Consult Physician Routine Consulting Provider: Yoseph Arroyo Consult Reason/Comments: medical management Do you want consulting provider notified?: Yes Primary care physician: Sherine Ma - Discharge Diagnosis(es) (1) Osteoarthritis of right knee Current Visit: Yes Status: Acute (2) S/P total knee arthroplasty Current Visit: Yes Status: Acute Pertinent Studies: This is a 39-year-old female with known history of degenerative arthritis of the right knee. The patient presents for evaluation. After discussion and consideration patient elects to proceed with total knee arthroplasty. The patient is seen preoperatively by Dr. Barrera and cleared for surgery. Patient is admitted to [facility] on 05/14/2020 for total knee arthroplasty. The procedures performed without complication or sequelae. The patient is doing well postoperatively. Labs and vital signs are stable on day of discharge. On day of discharge patient's knee incision is healing well. There is minimal erythema. There is no drainage noted at this time. There is minimal soft tissue swelling to the hip and thigh. Patient has full foot and ankle motion without difficulty or pain. Neurovascular status to the right lower extremity is intact. Opioid start talking form is discussed and signed. Patient is discharged home in good condition. Please see med rec for accurate list of home medications. Plan - Discharge Summary Discharge Rx Participant: Yes New Discharge Prescriptions: New Aspirin 325 mg PO BID #60 tab Gabapentin 300 mg PO BID 4 Days #8 cap Meloxicam [Mobic] 7.5 mg PO DAILY PRN #5 tab PRN Reason: Pain HYDROcodone/APAP 7.5-325MG [[place] 7.5-325] 1 - 2 tab PO Q6H PRN #32 tab PRN Reason: Pain Sennosides [Senokot] 2 tab PO DAILY PRN #60 tablet PRN Reason: Constipation hydrOXYzine pamoate [Vistaril] 25 mg PO Q6H PRN #30 capsule PRN Reason: Pain No Action Albuterol Inhaler (Mhu) [Ventolin Hfa Inhaler] 2 puff INHALATION RT-Q6H PRN PRN Reason: Shortness Of Breath Albuterol Nebulized [Ventolin Nebulized] 2.5 mg INHALATION RT-Q6H PRN PRN Reason: Shortness Of Breath Naproxen Sodium [Aleve] 220 mg PO BID Discharge Medication List Albuterol Inhaler (Mhu) [Ventolin Hfa Inhaler] 2 puff INHALATION RT-Q6H PRN 08/23/17 [History] Albuterol Nebulized [Ventolin Nebulized] 2.5 mg INHALATION RT-Q6H PRN 01/20/18 [History] Naproxen Sodium [Aleve] 220 mg PO BID 05/08/20 [History] Aspirin 325 mg PO BID #60 tab 05/15/20 [Rx] Gabapentin 300 mg PO BID 4 Days #8 cap 05/15/20 [Rx] HYDROcodone/APAP 7.5-325MG [[place] 7.5-325] 1 - 2 tab PO Q6H PRN #32 tab 05/15/20 [Rx] Meloxicam [Mobic] 7.5 mg PO DAILY PRN #5 tab 05/15/20 [Rx] Sennosides [Senokot] 2 tab PO DAILY PRN #60 tablet 05/15/20 [Rx] hydrOXYzine pamoate [Vistaril] 25 mg PO Q6H PRN #30 capsule 05/15/20 [Rx] Follow up Appointment(s)/Referral(s): [facility], [NON-STAFF] - As Needed Sherine Ma MD [Primary Care Provider] - 05/21/20 4:15 pm Rosas Barrera DO [Doctor of Osteopathic Medicine] - 05/27/20 2:45 pm [facility] Winter [NON-STAFF] - As Needed (Continuous Passive Motion knee machine) Ambulatory/Diagnostic Orders: Continuous Passive Motion (CPM) Machine [DME.AMB1] Time Frame: 3 Weeks, Location: None Selected Patient Instructions/Handouts: *Surgery [facility] - Scopalamine Patch Instructions Activity/Diet/Wound Care/Special Instructions: Weightbearing as tolerated with a walker. CPM 5-6h daily as tolerated. Leave dressing intact. May be removed by home care nurse or by patient in 10 days. May shower with dressing on. Recommend use of compression stockings daily until follow up to help prevent swelling and blood clots. May remove at night before sleeping. Please take aspirin 325mg twice daily for 30 days to prevent blood clots. Please follow up with [facility] and call with any questions or concerns, . Discharge Disposition: HOME WITH HOME HEALTH SERVICES
[2020-05-16] MEDS: diazePAM 5 MG TAB PO PRN (11:10)
--- NOTE | 2020-05-16 13:27 | P.PN ---
Subjective This is a pleasant 39 years old female with past medical history of asthma and osteoarthritis. History of tubal ligation and uterine ablation.she was admitted for severe osteoarthritis of the right knee undergoing elective right total knee arthroplasty today is postoperative day #0. Consult has been requested for routine medical management. Patient states that she has been biking a lot last year more than 200 miles and she has injury and her right knee prior To that which puts burden on her knee and she develops 3 spurs that was difficult to control with medical management Patient denies specific complaints, no chest pain or dyspnea. No abdominal pain, no diarrhea. No dysuria. No fever vitals looks stable. Heart rate is 59-61, blood pressure 155/72. She is saturating 96% on room air. Labs checked from last month 05/07/2020 showing unremarkable CBC and basic metabolic panel except for mild low sodium of 136, liver enzymes were not elevated. HCG was less than 2.4. 05/15/2020 Patient identified from pain at the surgical site. Her right knee however she feels better today this morning. He denies chest pain or dyspnea or abdominal pain. No nausea vomiting. No fever. She did not have bowel movement but she is passing gases. Hemodynamically she is a stable. CBC is unremarkable. On basic metabolic panel is pending Patient is complaining from constipation, she is already on laxatives 05/16/2020 Patient was seen working with occupational and physical therapy walking in the hallway with a walker. She was doing well generally. She denies any specific complaints, no chest pain or dyspnea. No abdominal pain. No change in urine or bowel habits. No fever. She says that her bowel movement is okay today. La ls are stable. And CBC from yesterday stable Objective - Vital Signs Vital signs: Vital Signs Temp 98.4 F 05/16/20 08:00 Pulse 70 05/16/20 08:00 Resp 16 05/16/20 08:00 BP 116/70 05/16/20 08:00 Pulse Ox 99 05/16/20 08:00 Intake & Output 05/15/20 05/16/20 05/16/20 18:59 06:59 18:59 Intake Total 540 Balance 540 Intake: Oral 540 Other: Voiding Method Toilet Toilet # Voids 3 1 - Exam GENERAL: The patient is alert and oriented x3, not in any acute distress. Well developed, well nourished. HEENT: Pupils are round and equally reacting to light. EOMI. No scleral icterus. No conjunctival pallor. Normocephalic, atraumatic. No pharyngeal erythema. No thyromegaly. CARDIOVASCULAR: S1 and S2 present. No murmurs, rubs, or gallops. PULMONARY: Chest is clear to auscultation, no wheezing or crackles. ABDOMEN: Soft, nontender, nondistended, normoactive bowel sounds. No palpable organomegaly. MUSCULOSKELETAL: No joint swelling or deformity. -EXTREMITIES: No cyanosis, clubbing, or pedal edema. Right knee is in dressing, rest of the examination is deferred to the surgical primary team NEUROLOGICAL: Gross neurological examination did not reveal any focal deficits. SKIN: No rashes. no petechiae. - Labs CBC & Chem 7: 05/15/20 07:58 Assessment and Plan Assessment: Severe osteoarthritis of the right knee status post right total knee replacement History of asthma, not an active issue Morbid obesity with BMI of 50.7 Plan: This is a pleasant 39 years old female who presents for elective right total knee arthroplasty. Continue with postop care. Pain management. Continue with pain medication and DVT prophylaxis as per surgery primary team Labs and medication were reviewed.. Continue same treatment. Continue with symptomatic treatment. Resume home medication. Monitor lytes and vitals. DVT and GI prophylaxis. Further recommendations depends on the clinical course of the patient
== END 2020-05-16 12:54 | disposition home health service (06) ==
LOC: OR 07:18 → 4SSUR 10:38 → OR 05-15 08:18
PROVIDERS: ADMIT Orthopaedic Surgery; ATTEND Orthopaedic Surgery
DX: M17.11 Unilateral primary osteoarthritis, right knee (principal); G93.2 Benign intracranial hypertension; J45.909 Unspecified asthma, uncomplicated; F32.9 Major depressive disorder, single episode, unspecified; E66.01 Morbid (severe) obesity due to excess calories; Z68.43 Body mass index [BMI] 50.0-59.9, adult; F17.210 Nicotine dependence, cigarettes, uncomplicated; Z79.1 Long term (current) use of non-steroidal anti-inflammatories (NSAID); Z91.041 Radiographic dye allergy status; Z88.5 Allergy status to narcotic agent; Z97.3 Presence of spectacles and contact lenses; Z90.49 Acquired absence of other specified parts of digestive tract; Z98.891 History of uterine scar from previous surgery; Z98.51 Tubal ligation status; Z83.3 Family history of diabetes mellitus; Z80.41 Family history of malignant neoplasm of ovary; Z82.3 Family history of stroke
CPT/HCPCS: 97116; 97161; 81025; 64448; 76942; 85025; 88300; 73560; 27447; G0378 ×2; C1713; C1776; J2250; J0171; J1100; J2710; J2175; J0690 ×2; J2405; J2001; J3010; J1170 ×4; J2795 ×2; J0330; J2704; J0735

== ENCOUNTER 2020-10-04 10:22 | Day surgery (SDC) | payer OTHER ==
[2020-10-04 10:47] VITALS: TEMP 97.8
[2020-10-04] MEDS ORDERED: LIDOCAINE 1% INJ 10MG/ML (20 ML MDV) ONE (10:58)
--- NOTE | 2020-10-04 11:19 | P.PCN ---
Date of Procedure: 10/04/20 Description of Procedure: Procedure= lumbar epidural blood patch. Preoperative diagnosis= postdural puncture headache. Postoperative diagnoses= post dural puncture headache. Indication for the procedure= is a patient with history of benign ICH who recently had a lumbar puncture at an ER in [place]. Since then patient has had a significant positional headache along with nausea and some tinnitus. No focal neurologic deficit.no fever, no neck stiffness, headache worse with sitting and standing position, and improved with lying supine, for this reason patient is a good candidate for epidural blood patch. anesthesia= local infiltration with lidocaine 1% 3 mL. Procedure date 10/04/20 Complications= none. Description of the procedure= patient identified risks and benefits of the procedure explained to the patient and patient agreed with proceeding, vital signs monitored during the procedure Back lumbar area prepped with Betadine 3 times, then drape applied. Local infiltration of the skin and subcutaneous tissue with lidocaine 1% 3 mL at L3-4 interlaminar space (at the site of prior lumbar puncture) then 20-gauge Tuohy needle advanced slowly, there was positive loss of resistance to normal saline, no heme no paresthesia no cerebrospinal fluid. Then, patient's blood was taken under strict sterile technique, after the hand area was prepped with a chlorhexidine 2 times, using 20-gauge Angiocath, 15 ML of the blood removed was injected into the epidural space, , no paresthesias. Then the needle was removed intact the skin cleaned and bandage applied and patient was placed supine in recovery room for 2 hours and subsequently discharged home in stable condition after discharge criteria met Follow-up: When necessary
--- NOTE | 2020-10-04 11:57 | FL ---
Fluoroscopy HISTORY: Pain 9 seconds fluoroscopy time supplied to the referring clinician. 2 intraoperative C-arm images docume nt the procedure. See dictated report from anesthesia.
[2020-10-04] MEDS ORDERED: IV FLUID CONTINUATION 1,000 ML IV ONE (12:57)
[2020-10-04 13:03] VITALS: RESP 16
[2020-10-04 13:43] VITALS: BP 142/64; PULSE 64
== END 2020-10-04 13:42 ==
LOC: ORPAIN 10:22
PROVIDERS: ATTEND Anesthesiology
DX: G97.1 Other reaction to spinal and lumbar puncture (principal)
CPT/HCPCS: 62273; 81025; J2001

== ENCOUNTER → 2022-09-09 | Outpatient (CLI) | payer OTHER ==
--- NOTE | 2022-09-09 21:26 | EEG ---
ELECTROENCEPHALOGRAM REPORT CLINICAL HISTORY: This is a 42-year-old woman with history of reported idiopathic intracranial hypertension with daily headache, who has history of seizure-like activity that is reported. The video EEG is obtained to evaluate for seizure and epileptiform activity. RELEVANT MEDICATION: The patient is not on any antiepileptic drugs that is reported on her chart. EEG TYPE: A routine 21-channel EEG is performed with video using the 10/20 electrode placement system. DESCRIPTION: Wakefulness is obtained. The posterior dominant rhythm consists of low voltage of 11 to 11.5 hertz activity. There was no physiological stage 2 sleep architecture. There is no focal slowing. Interictal and ictal is none. ACTIVATION PROCEDURE: Photic stimulation had to be aborted and was done up to 16 hertz and was aborted due to her headache. There was no abnormality with the limited photic stimulation and there was no photic driving noted. Hyperventilation is not performed. CLINICAL INTERPRETATION: This is a normal routine EEG. There is no focal slowing, epileptiform discharge, or seizure on the EEG. A normal routine EEG does not rule out underlying epilepsy. Clinical correlation is recommended. MMODL / IJN: [id number] /
== END ==
LOC: NEUROMAIN 08:03
PROVIDERS: ATTEND Family Medicine
DX: Z86.69 Personal history of other diseases of the nervous system and sense organs (principal)
CPT/HCPCS: 95816

== ENCOUNTER 2024-02-29 10:42 | Emergency (ER) | payer OTHER ==
[2024-02-29 10:57] VITALS: RESP 18
--- NOTE | 2024-02-29 11:16 | ED ---
Abdominal Pain HPI - General Chief Complaint: Abdominal Pain Stated Complaint: Abd pain Time Seen by Provider: 02/29/24 11:01 Source: patient, RN notes reviewed Mode of arrival: ambulatory Limitations: no limitations - History of Present Illness Initial Comments: 43-year-old female presents emergency department chief complaint of left-sided abdominal pain. Patient states has been present for over 2 days. Patient states that she has associated pain,, diarrhea denies any melanotic stools no significant history of diverticulitis states maybe once. Patient states she had a prior cholecystectomy no fevers or chills no chest pain - Related Data Home Medications Medication Instructions Recorded Confirmed Albuterol Inhaler [Ventolin Hfa 2 puff INHALATION RT-Q6H PRN 08/23/17 10/04/20 Inhaler] Albuterol Nebulized [Ventolin 2.5 mg INHALATION RT-Q6H PRN 01/20/18 10/04/20 Nebulized] Previous Rx's Medication Instructions Recorded Amoxic-Pot Clav 875-125Mg 1 tab PO Q12HR #20 tab 02/29/24 [Augmentin 875-125] Ondansetron Odt [Zofran Odt] 4 mg PO Q8HR PRN #10 tab 02/29/24 Allergies Allergy/AdvReac Type Severity Reaction Status Date / Time Iodinated Contrast Media Allergy Rash/Hives Verified 02/29/24 10:57 ketorolac [From Toradol] Allergy Rash/Hives Verified 02/29/24 10:57 Review of Systems ROS Statement: Those systems with pertinent positive or pertinent negative responses have been documented in the HPI. ROS Other: All systems not noted in ROS Statement are negative. Past Medical History Past Medical History: No Reported History Additional Past Medical History / Comment(s): migraines History of Any Multi-Drug Resistant Organisms: None Reported Past Surgical History: Section, Cholecystectomy, Tubal Ligation Past Anesthesia/Blood Transfusion Reactions: No Reported Reaction Past Psychological History: No Psychological Hx Reported Smoking Status: Current some day smoker Past Alcohol Use History: Occasional Past Drug Use History: None Reported - Past Family History Mother Family Medical History: Cancer, CVA/TIA Additional Family Medical History / Comment(s): ovarian cancer General Exam Limitations: no limitations General appearance: alert, in no apparent distress Head exam: Present: atraumatic, normocephalic, normal inspection Eye exam: Present: normal appearance, PERRL, EOMI. Absent: scleral icterus, conjunctival injection, periorbital swelling ENT exam: Present: normal exam, normal oropharynx, mucous membranes moist Neck exam: Present: normal inspection, full ROM. Absent: tenderness, meningismus, lymphadenopathy Respiratory exam: Present: normal lung sounds bilaterally. Absent: respiratory distress, wheezes, rales, rhonchi, stridor Cardiovascular Exam: Present: regular rate, normal rhythm, normal heart sounds. Absent: systolic murmur, diastolic murmur, rubs, gallop, clicks GI/Abdominal exam: Present: soft, tenderness, normal bowel sounds. Absent: dis tended, guarding, rebound, rigid Back exam: Absent: CVA tenderness (R), CVA tenderness (L) Course Vital Signs 02/29/24 02/29/24 10:53 12:55 Temperature 98.7 F 98.1 F Pulse Rate 96 75 Respiratory 18 18 Rate Blood Pressure 136/86 113/71 O2 Sat by Pulse 96 97 Oximetry Medical Decision Making - Medical Decision Making Was pt. sent in by a medical professional or institution (, PA, SHOE FOLDER, urgent care, hospital, or group home...) When possible be specific @ -No Did you speak to anyone other than the patient for history (EMS, parent, family, police, friend...)? What history was obtained from this source @ -No Did you review nursing and triage notes (agree or disagree)? Why? @ -I reviewed and agree with nursing and triage notes Were old charts reviewed (outside hosp., previous admission, EMS record, old EKG, old radiological studies, urgent care reports/EKG's, group home records)? Report findings @ -No old charts were reviewed Differential Diagnosis (chest pain, altered mental status, abdominal pain women, abdominal pain men, vaginal bleeding, weakness, fever, dyspnea, syncope, headache, dizziness, GI bleed, back pain, seizure, CVA, palpatations, mental health, musculoskeletal)? @ -Differential Abdominal Pain Women: Appendicitis, Cholecystitis, diverticulosis, ischemic bowel, pancreatitis, hepatitis, UTI, gastroenteritis, AAA, incarcerated hernia, bowel obstruction, constipation, inflammatory bowel, hepatitis, peptic ulcer disease, splenic infarction, perforated viscus, vulvitis, ovarian torsion, PID, kidney stone, placenta abruption, this is not meant to be an all-inclusive list EKG interpreted by me (3pts min.). @ -None X-rays interpreted by me (1pt min.). @ -None done CT interpreted by me (1pt min.). @ -CT of the abdomen pelvis showing evidence of acute diverticulitis uncomplicated U/S interpreted by me (1pt. min.). @ -None done What testing was considered but not performed or refused? (CT, X-rays, U/S, labs)? Why? @ -None What meds were considered but not given or refused? Why? @ -None Did you discuss the management of the patient with other professionals (professionals i.e. Dr., PA, SHOE FOLDER, lab, RT, psych nurse, health social work professor, casing tier, teacher, community service officer, correctional counselor/case manager)? Give summary @ -No Was smoking cessation discussed for >3mins.? @ -No Was critical care preformed (if so, how long)? @ -No Were there social determinants of health that impacted care today? How? (Homelessness, low income, unemployed, alcoholism, drug addiction, transportation, low edu. Level, literacy, decrease access to med. care, [place] [facility], rehab)? @ -No Was there de-escalation of care discussed even if they declined (Discuss DNR or withdrawal of care, Hospice)? DNR status @ -No What co-morbidities impacted this encounter? (DM, HTN, Smoking, COPD, CAD, Cancer, CVA, ARF, Chemo, Hep., AIDS, mental health diagnosis, sleep apnea, morbid obesity)? @ -None Was patient admitted / discharged? Hospital course, mention meds given and route, prescriptions, significant lab abnormalities, going to OR and other pertinent info. @ -Discharge patient presented for abdominal pain x 2 days with diarrhea she has uncomplicated diverticulitis given Rocephin discharged on Augmentin return parameters discussed. Undiagnosed new problem with uncertain prognosis? @ -No Drug Therapy requiring intensive monitoring for toxicity (Heparin, Nitro, Insulin, Cardizem)? @ -No Were any procedures done? @ -No Diagnosis/symptom? @ -Acute diverticulitis Acute, or Chronic, or Acute on Chronic? @ -Acute Uncomplicated (without systemic symptoms) or Complicated (systemic symptoms)? @ -Uncomplicated Side effects of treatment? @ -No Exacerbation, Progression, or Severe Exacerbation? @ -No Poses a threat to life or bodily function? How? (Chest pain, [place], NH, pneumonia, PE, COPD, DKA, ARF, appy, cholecystitis, CVA, Diverticulitis, Homicidal, Suicidal, threat to staff... and all critical care pts) @ -No - Lab Data Result diagrams: 02/29/24 11:15 02/29/24 11:15 Lab Results 02/29/24 02/29/24 02/29/24 Range/Units 11:15 11:15 11:15 WBC 11.1 H (3.8-10.6) k/uL RBC 4.90 (3.80-5.40) m/uL Hgb 14.1 (11.4-16.0) gm/dL Hct 43.4 (34.0-46.0) % MCV 88.6 (80.0-100.0) fL MCH 28.8 (25.0-35.0) pg MCHC 32.5 (31.0-37.0) g/dL RDW 13.3 (11.5-15.5) % Plt Count 372 (150-450) k/uL MPV 6.8 Neutrophils % 73 % Lymphocytes % 17 % Monocytes % 6 % Eosinophils % 2 % Basophils % 0 % Neutrophils # 8.2 H (1.3-7.7) k/uL Lymphocytes # 1.9 (1.0-4.8) k/uL Monocytes # 0.7 (0-1.0) k/uL Eosinophils # 0.2 (0-0.7) k/uL Basophils # 0.0 (0-0.2) k/uL Sodium 136 L (137-145) mmol/L Potassium 5.0 (3.5-5.1) mmol/L Chloride 103 (98-107) mmol/L Carbon Dioxide 26 (22-30) mmol/L Anion Gap 7 mmol/L BUN 9 (7-17) mg/dL Creatinine 0.72 (0.52-1.04) mg/dL Est GFR (CKD-EPI)AfAm >90 (>60 ml/min/1.73 sqM) Est GFR (CKD-EPI)NonAf >90 (>60 ml/min/1.73 sqM) Glucose 108 H (74-99) mg/dL Plasma Lactic Acid Gino (0.7-2.0) mmol/L Calcium 9.6 (8.4-10.2) mg/dL Total Bilirubin 1.1 (0.2-1.3) mg/dL AST 31 (14-36) U/L ALT 25 (4-34) U/L Alkaline Phosphatase 87 (38-126) U/L Total Protein 7.0 (6.3-8.2) g/dL Albumin 4.3 (3.5-5.0) g/dL Lipase 81 (23-300) U/L Urine Color Yellow Urine Appearance Clear (Clear) Urine pH 6.0 (5.0-8.0) Ur Specific [place] 1.015 (1.001-1.035) Urine Protein Trace H (Negative) Urine Glucose (UA) Negative (Negative) Urine Ketones Negative (Negative) Urine Blood Negative (Negative) Urine Nitrite Negative (Negative) Urine Bilirubin Negative (Negative) Urine Urobilinogen <2.0 (<2.0) mg/dL Ur Leukocyte Esterase Negative (Negative) 02/29/24 Range/Units 11:15 WBC (3.8-10.6) k/uL RBC (3.80-5.40) m/uL Hgb (11.4-16.0) gm/dL Hct (34.0-46.0) % MCV (80.0-100.0) fL MCH (25.0-35.0) pg MCHC (31.0-37.0) g/dL RDW (11.5-15.5) % Plt Count (150-450) k/uL MPV Neutrophils % % Lymphocytes % % Monocytes % % Eosinophils % % Basophils % % Neutrophils # (1.3-7.7) k/uL Lymphocytes # (1.0-4.8) k/uL Monocytes # (0-1.0) k/uL Eosinophils # (0-0.7) k/uL Basophils # (0-0.2) k/uL Sodium (137-145) mmol/L Potassium (3.5-5.1) mmol/L Chloride (98-107) mmol/L Carbon Dioxide (22-30) mmol/L Anion Gap mmol/L BUN (7-17) mg/dL Creatinine (0.52-1.04) mg/dL Est GFR (CKD-EPI)AfAm (>60 ml/min/1.73 sqM) Est GFR (CKD-EPI)NonAf (>60 ml/min/1.73 sqM) Glucose (74-99) mg/dL Plasma Lactic Acid Gino 0.8 (0.7-2.0) mmol/L Calcium (8.4-10.2) mg/dL Total Bilirubin (0.2-1.3) mg/dL AST (14-36) U/L ALT (4-34) U/L Alkaline Phosphatase (38-126) U/L Total Protein (6.3-8.2) g/dL Albumin (3.5-5.0) g/dL Lipase (23-300) U/L Urine Color Urine Appearance (Clear) Urine pH (5.0-8.0) Ur Specific [place] (1.001-1.035) Urine Protein (Negative) Urine Glucose (UA) (Negative) Urine Ketones (Negative) Urine Blood (Negative) Urine Nitrite (Negative) Urine Bilirubin (Negative) Urine Urobilinogen (<2.0) mg/dL Ur Leukocyte Esterase (Negative) Disposition Clinical Impression: Acute diverticulitis Disposition: HOME SELF-CARE Condition: Stable Instructions (If sedation given, give patient instructions): Diverticulitis (ED), Diverticulitis Diet (ED) Additional Instructions: Please return to the Emergency Department if symptoms worsen or any other concerns. Prescriptions: Amoxic-Pot Clav 875-125Mg [Augmentin 875-125] 1 tab PO Q12HR #20 tab Ondansetron Odt [Zofran Odt] 4 mg PO Q8HR PRN #10 tab PRN Reason: Nausea Is patient prescribed a controlled substance at d/c from ED?: No Referrals: Sherine Ma MD [Primary Care Provider] - 1-2 days Edgar Hoover DO [Doctor of Osteopathic Medicine] - 1-2 days Time of Disposition: 12:39
[2024-02-29] MEDS: SODIUM CHLORIDE 0.9% 1,000 ML IV STA (11:31)
[2024-02-29] MEDS: SODIUM CHLORIDE 0.9% 500 ML 500 ML IV STA (11:32)
[2024-02-29 11:51] LABS: Basophils % (A) 0 %; Eosinophils # (A) 0.2 k/uL (0-0.7); Eosinophils % (A) 2 %; HCT 43.4 % (34.0-46.0); HGB 14.1 gm/dL (11.4-16.0); Lymphocytes # (A) 1.9 k/uL (1.0-4.8); Lymphocytes % (A) 17 %; MCH 28.8 pg (25.0-35.0); MCHC 32.5 g/dL (31.0-37.0); MCV 88.6 fL (80.0-100.0); Mean Platelet Volume 6.8; Monocytes # (A) 0.7 k/uL (0-1.0); Monocytes % (A) 6 %; Neutrophils # (A) 8.2 k/uL (1.3-7.7); Neutrophils % (A) 73 %; Platelet Count 372 k/uL (150-450); RDW 13.3 % (11.5-15.5); WBC 11.1 k/uL (3.8-10.6)
--- NOTE | 2024-02-29 11:52 | CT ---
EXAMINATION TYPE: CT abdomen pelvis wo con CT DLP: 2211.4 mGycm, Automated exposure control for dose reduction was used. DATE OF EXAM: 02/29/2024 11:46 AM COMPARISON: CT abdomen pelvis 06/16/2017 CLINICAL INDICATION:Female, 43 years old with history of left side pain; left sided abdominal pain x4 0 hours with nausea. Pt also states diarrhea x2 weeks TECHNIQUE: Standard CT of the abdomen and pelvis without IV or oral contrast. Lack of IV or oral co ntrast limits evaluation of solid and hollow organ viscera. Coronal and sagittal reformats were perfo rmed. FINDINGS: LOWER CHEST: Minimal linear scarring and/or atelectasis within the left lower lobe. ABDOMEN LIVER: Diffusely hypoattenuating parenchyma. GALLBLADDER AND BILE DUCTS: The gallbladder is surgically absent. No biliary ductal dilatation. PANCREAS: Unremarkable noncontrast appearance SPLEEN: Unremarkable noncontrast appearance ADRENAL GLANDS: Unremarkable noncontrast appearance. KIDNEYS AND URETERS: No evidence of hydronephrosis or renal calculus. PELVIS BLADDER: Incompletely distended but grossly unremarkable. REPRODUCTIVE: Unremarkable noncontrast appearance. ABDOMEN & PELVIS STOMACH AND BOWEL: Stomach and duodenum are unremarkable. Scattered distal colonic diverticula with f at stranding and wall thickening involving the descending colon (series 202, image 59). No surroundin g organized fluid collection. There is fascial thickening along the left paracolic gutter. No evidenc e of bowel obstruction. PERITONEUM: No evidence of pneumoperitoneum or free fluid. VASCULATURE: No evidence of aortic aneurysm. MUSCULOSKELETAL: No acute osseous abnormalities LYMPH NODES: No gross evidence for lymphadenopathy. SOFT TISSUE/ABDOMINAL WALL: Unremarkable IMPRESSION: 1. Acute uncomplicated diverticulitis of the descending colon. 2. Hepatic steatosis. [facility], , 02/29/2024 11:50 AM
[2024-02-29 11:53] LABS: Appearance,Urine Clear (Clear); Bilirubin,Urine Negative (Negative); Blood,Urine Negative (Negative); Color,Urine Yellow; Glucose,Urine (UA) Negative (Negative); Ketones,Urine Negative (Negative); Leukocyte Esterase,Urine Negative (Negative); Nitrite,Urine Negative (Negative); Protein,Urine Trace (Negative); Specific Gravity,Urine 1.015 (1.001-1.035); Urobilinogen,Urine <2.0 mg/dL (<2.0)
[2024-02-29 12:02] LABS: ALT 25 U/L (4-34); AST 31 U/L (14-36); African American GFR (CKD) >90 (>60 ml/min/1.73 sqM); Albumin 4.3 g/dL (3.5-5.0); Alkaline Phosphatase 87 U/L (38-126); Anion Gap 7 mmol/L; Blood Urea Nitrogen 9 mg/dL (7-17); Calcium 9.6 mg/dL (8.4-10.2); Carbon Dioxide 26 mmol/L (22-30); Chloride 103 mmol/L (98-107); Glucose 108 mg/dL (74-99); Lipase 81 U/L (23-300); Non-African American GFR(CKD) >90 (>60 ml/min/1.73 sqM); Sodium 136 mmol/L (137-145); Total Bilirubin 1.1 mg/dL (0.2-1.3)
[2024-02-29] MEDS: KETOROLAC 15 MG/ML 1 ML VIAL IVP STA (12:12)
[2024-02-29] MEDS: ACET/COD 300 MG/30 MG STARTER PACK 6 TAB BTL PO STA (12:59)
[2024-02-29 13:00] VITALS: BP 113/71; PULSE 75; TEMP 98.1
[2024-02-29] MEDS: HYDROmorphone 0.5 MG/0.5 ML SYRINGE IVP STA (13:00)
[2024-02-29] MEDS: cefTRIAXone IN SWFI 1,000 MG/10 ML SYRINGE IVP STA (13:00)
== END 2024-02-29 13:41 | disposition home or self-care (01) ==
LOC: EC 10:42
DX: K57.32 Diverticulitis of large intestine without perforation or abscess without bleeding (principal); F17.200 Nicotine dependence, unspecified, uncomplicated; Z91.041 Radiographic dye allergy status; Z90.49 Acquired absence of other specified parts of digestive tract; Z88.6 Allergy status to analgesic agent
CPT/HCPCS: 36415; 80053; 83605; 83690; 85025; 81003; 74176; 99284; 96374; 96375 ×2; 96361; J0696; J1885; J1171